=== PATIENT | male | born 1985 | race Caucasian/White ===

== ENCOUNTER 2021-04-03 14:52 | Inpatient (IN) ==
[2021-04-03] MEDS ORDERED: POLYETHYLENE (MIRALAX) 17 GM PACK PO PRN (18:08)
[2021-04-03] MEDS ORDERED: ALUMINUM/MAGNESIUM SUSP 30 ML UDC PO PRN (18:08)
[2021-04-03] MEDS ORDERED: MAGNESIUM HYDROXIDE SUSP 30 ML UDC PO PRN (18:08)
[2021-04-03] MEDS ORDERED: KETOROLAC TROMETHAMINE 15 MG/ML VIAL IV ONE (18:11)
--- NOTE | 2021-04-03 18:19 | History & Physical Report ---
Date of Service April 03, 2021 Assessment & Plan (1) Cavitary lesion of lung: - concern for infectious etiology (bacterial vs fungal vs TB ) vs septic pulmonary emboli in person with IVDU hx and Hep C - CTA Chest for evaluation. AFb smear, gold quantiferon pending. - CBC, CMP, MRSA nares pending. - Vanc, Caspofungin, Zosyn empiric coverage. - airborne precautions - pulm consult - monitor oxygen requirements - PCU for monitoring (2) Bilateral nephrolithiasis: - nonobstructing, 4mm BL - strain urine. ketorolac 10 mg x1. - KUB negative - no hydronephrosis on CT A/P, Bl perinephric stranding - UA unimpressive for infection. - urine and blood cultures pending (3) History of heroin abuse: - cont suboxone 16 mg daily - concern for pulm emboli 2/2 endocarditis, tte in AM (4) Lab test positive for detection of COVID-19 virus: - had covid 1 month ago, pt not tested at that time - asymptomatic - tested positive on 04/03 at [facility] - no O2 requirement - airborne/covid precautions (5) Hepatitis C: - viral quant pending, untreated - consider HIV testing (6) Elevated INR: PT elevated to 16 at [facility] repeat ordered DVT ppx: holding in setting of elevated PT/INR FEN/GI: regular diet, Full Code PCU (7) Constipation: notable stool on KUB, scheduled miralax and docusate Admission and Anticipated Discharge Date Admission Date: April 03, 2021 History of Present Illness 35 yo M with hx untreated hep C, hx IVDU, hx heroin abuse currently on suboxone who presented to [facility] with nausea and vomiting earlier today. States that a few days ago he started feeling pain in his lower back, that was not improving. This morning woke up with nausea, vomited. Denies bilious or bloody vomit. no diarrhea. has some mild stomach pain, mostly back pain. Describes testicular pain that was getting worse and burning pain with urination. He was eventually sent to [facility] as a direct admit described as kidney stones with COVID and concern for pyelonephritis. Review of [facility] records notably shows CT A/P read of 11mm cyst vs abscess of left kidney, and multiple cavitary lesions of lower lung dee. Brief overread by inhouse radiology was more convinced of kidney cyst given small size, but concerned regarding cavitary lesions possibly being septic pulmonary emboli in patient with Hep C and hx IVDU. At bedside patient denied any recent fevers or chills. Nausea and vomiting x1, no diarrhea. No symptoms of Covid. says his had covid 1 month ago, he wasn't tested at the time and has not had breathing problems the entire duration. at this time he feels some discomfort with taking a deep breath but no SOB or CUELLAR. He tested positive for COVID at [facility] today. He also describes testicular pain with urination, and numbness/tingling in testicles. He denies any incontinence of bowel or bladder. He states that approximately 3 weeks ago he bent to pick something heavy up at work and heard a "pop" sound from his back. He visited the chiropractor 3 times to have it adjusted with some improvement. Primary Care Provider: Sierra Zuniga Allergies Allergy/AdvReac Type Severity Reaction Status Date / Time No Known Allergies Allergy Verified 04/03/21 18:47 Past Med/Surg History Medical History (Updated 04/04/21 @ 15:46 by Kofi Buckley MD) No pertinent family history Osteomyelitis of jaw Surgical History (Updated 04/03/21 @ 18:22 by Sadie Win MD) History of mandibular surgery History of placement of ear tubes Hx of tonsillectomy Social History (Updated 04/03/21 @ 18:24 by Sadie Win MD) Smoking Status: Current every day smoker Age Started Using Tobacco: 20; Cigarettes Per Day: 1 pack; Second Hand Exposure: Yes; Do You Dip or Chew Tobacco: No; Hx Alcohol Use: Yes Alcohol type: beer and hard liquor Alcohol Intake Frequency: Monthly or Less Hx Substance Use: Yes Non-Prescribed Medications: Heroin Substance Use Type Other:: hx of heroin use Preferred Language: Luxembourgish Communication Ability: Effective Shank Sorter Required: No Beliefs That Will Affect Care: None Current Living Situation: Family Other Information That Helps Us Care for You: No Feels Safe at Home: Yes Safety Concerns: Feels Safe At This Time Assistive Devices: None Review of Systems Constitutional: no fever, no chills, no sweats and no fatigue Eyes: no blind spots and no discharge Ear, Nose, Mouth, Throat: no hearing loss and no nasal congestion Respiratory: no cough and no dyspnea Cardiovascular: no chest pain, no dyspnea on exertion and no edema Danis tional Comments: + Pain with deep breath Gastrointestinal: + abdominal pain, + nausea and + vomiting; no constipation, no diarrhea/loose stools and no blood in stools Genitourinary: + testicle pain Musculoskeletal: + back pain and + joint pain; no myalgia no CVA tenderness or pain to palpation of spinous processes Neurologic: + tingling and + numbness; no headache(s) Endocrine: no fatigue Physical Exam Physical Exam: Constitutional: thin young male, constantly rearranging position in bed due to discomfort Eyes: EOMI, pupils equal and reactive bilaterally, no scleral icterus Cardiac: RRR, no murmurs, gallops or rubs. Normal S1, S2 Pulm: CTA BL, no wheezes, rhonchi, crackles or rubs, moving air well throughout both lungs Abd: soft, diffuse mild tenderness, nondistended, normal bowel sounds, no rebound or guarding Extremities: 2+ peripheral pulses, no edema Neuro: no focal deficits, moving all 4 limbs, A&Ox3 MSK: plantar flexion, dorsi flexion equal bilaterally, 5/5 flexion, extension at left hip, 3/5 flexion of right hip, 5/5 extension of right hip. negative log roll test bilaterally. Results & Data Results & Data ([facility] [place]) Vital Signs (Past 12 Hours) Vital Signs Temp Pulse Resp BP Pulse Ox 04/03/21 21:30 37.6 C H 82 16 95/56 L 92 04/03/21 18:08 37.0 C 18 117/75 93 Intake and Output 04/03/21 04/03/21 04/03/21 07:59 15:59 23:59 Other: Weight 77.111 kg Weight Measurement Method Last Office Visit Patient Weight 04/03/21 23:59 Weight 77.111 kg Laboratory Results Laboratory Results WBC 21.53 K/uL (4.8-10.8) H 04/03/21 20:37 RBC 4.38 M/uL (4.7-6.1) L 04/03/21 20:37 Hgb 12.8 g/dL (14.0-18.0) L 04/03/21 20:37 Hct 36.4 % (42-52) L 04/03/21 20:37 MCV 83.1 fL (80-100) 04/03/21 20:37 MCH 29.2 pg (25-34) 04/03/21 20:37 MCHC 35.2 g/dL (32-36) 04/03/21 20:37 RDW Std Deviation 38.7 fL (36.4-46.3) 04/03/21 20:37 RDW Coeff of Riley 12.8 % (11.5-14.5) 04/03/21 20:37 Plt Count 138 K/uL (130-400) 04/03/21 20:37 MPV 10.9 fL (7.4-10.4) H 04/03/21 20:37 Immature Gran % (Auto) 0.8 % 04/03/21 20:37 Neut % (Auto) 91.3 % 04/03/21 20:37 Lymph % (Auto) 3.0 % 04/03/21 20:37 Costilla % (Auto) 4.9 % 04/03/21 20:37 Eos % (Auto) 0.0 % 04/03/21 20:37 Baso % (Auto) 0.0 % 04/03/21 20:37 Neut # (Auto) 19.64 K/uL (1.4-6.5) H 04/03/21 20:37 Lymph # (Auto) 0.65 K/uL (1.2-3.4) L 04/03/21 20:37 Costilla # (Auto) 1.05 K/uL (0.11-0.59) H 04/03/21 20:37 Eos # (Auto) 0.00 K/uL (0-0.5) 04/03/21 20:37 Baso # (Auto) 0.01 K/uL (0-0.2) 04/03/21 20:37 Immature Gran # (Auto) 0.18 K/uL (0.00-0.02) H 04/03/21 20:37 PT 12.4 Seconds (9.0-12.0) H 04/03/21 20:37 INR 1.2 (0.9-1.1) H 04/03/21 20:37 Sodium 135 mmol/L (136-145) L 04/03/21 20:37 Potassium 3.9 mmol/L (3.5-5.1) 04/03/21 20:37 Chloride 105 mmol/L (98-107) 04/03/21 20:37 Carbon Dioxide 25 mmol/L (21-32) 04/03/21 20:37 Anion Gap 6.0 (3-11) 04/03/21 20:37 BUN 18 mg/dl (7-18) 04/03/21 20:37 Creatinine 0.99 mg/dl (0.6-1.4) 04/03/21 20:37 Est Cr Clr Drug Dosing 97.4 ml/min 04/03/21 20:37 Est GFR ( Amer) 113.9 ml/min 04/03/21 20:37 Est GFR (Non-Af Amer) 98.3 ml/min 04/03/21 20:37 BUN/Creatinine Ratio 17.9 (10-20) 04/03/21 20:37 Glucose 147 mg/dl (70-99) H 04/03/21 20:37 Calcium 9.1 mg/dl (8.5-10.1) 04/03/21 20:37 Total Bilirubin 1.3 mg/dl (0.2-1) H 04/03/21 20:37 AST 36 U/L (15-37) 04/03/21 20:37 ALT 51 U/L (12-78) 04/03/21 20:37 Alkaline Phosphatase 91 U/L (45-117) 04/03/21 20:37 Total Protein 7.7 gm/dl (6.4-8.2) 04/03/21 20:37 Albumin 3.2 gm/dl (3.4-5.0) L 04/03/21 20:37 Globulin 4.5 gm/dl (2.5-4.0) H 04/03/21 20:37 Albumin/Globulin Ratio 0.7 (0.9-2) L 04/03/21 20:37 Impressions Lumbar Spine X-Ray 04/03/21 18:18 LUMBAR SPINE 5 VIEWS HISTORY: back pop with right leg pain COMPARISON: None. FINDINGS: There is no fracture. No subluxation. Mild disc space narrowing at L5-S1. Mild facet degenerative changes within the lower lumbar spine. L5 is demonstrated to be a transitional vertebra with partial sacralization and pseudoarthrosis of the right transverse process with the sacrum. IMPRESSION: No fracture or subluxation within the lumbar spine. ACT 112: Negative or not required by law. Electronically signed by: Arsh Mckeon M.D. 04/03/2021 9:08 PM KUB X-Ray 04/03/21 19:21 KUB HISTORY: kidney stones COMPARISON: None. FINDINGS: The bowel gas pattern is unremarkable. There are no dilated loops of small bowel to suggest an obstruction. No renal calculi. No ureteral calculi. No pneumoperitoneum or pneumatosis. Moderate well-formed stool seen within the colon. IMPRESSION: No renal or ureteral stones. ACT 112: Negative or not required by law. Electronically signed by: Arsh Mckeon M.D. 04/03/2021 9:09 PM Supervising Physician Co-Signing Physician Notes Reviewed note, discussed with resident. Patient here with cavitary lesion along. Patient is on broad-spectrum antibiotics along with antifungals. Pulmonary is consulting. Patient has no renal issues at this point, bilateral nephrolithiasis nonobstructing and largest stone is in the bladder. Plan to continue antibiotics as noted, monitor renal function. Consider repeat CT if continued symptoms. Resident Activity Tracking Resident Involvement: Resident Care Provided Care Provided: Adult Hospital Medicine (1) Hepatitis C Viral hepatitis chronicity: chronic
[2021-04-03] MEDS ORDERED: KETOROLAC TROMETHAMINE 15 MG/ML VIAL ONE (18:29)
[2021-04-03] MEDS ORDERED: PATIENT'S ALLERGY INFO NEEDS ENTERED STA (18:44)
[2021-04-03] MEDS: SODIUM CHLORIDE 0.9% 1000ML 1,000 ML IV SCH ×2 (18:53→23:53)
[2021-04-03] MEDS ORDERED: cefTRIAXone SODIUM 1,000 MG in DEXTROSE 5% 50 ML IV SCH (20:00)
[2021-04-03] MEDS ORDERED: VANCOMYCIN CONSULT ACTIVE PRN (20:04)
[2021-04-03] MEDS ORDERED: PIPERACILL/TAZOBAC CONSULT ACTIVE PRN (20:34)
[2021-04-03] MEDS ORDERED: VANCOMYCIN HCL 2,000 MG in SODIUM CHLORIDE 0.9% 500 ML IV ONE (20:45)
[2021-04-03] MEDS: BUPRENORPHINE/NALOXONE 8/2 MG TAB SL SCH (20:54)
[2021-04-03 20:59] LABS: Basophils # (auto) 0.01 K/uL (0-0.2); Hematocrit (blood only) 36.4 % (42-52); Hemoglobin 12.8 g/dL (14.0-18.0); Immature Granulocytes # (auto) 0.18 K/uL (0.00-0.02); Immature Granulocytes % (auto) 0.8 %; Lymphocytes # (auto) 0.65 K/uL (1.2-3.4); Mean Corpuscular Hemoglobin 29.2 pg (25-34); Mean Corpuscular Hgb Conc 35.2 g/dL (32-36); Mean Corpuscular Volume 83.1 fL (80-100); Mean Platelet Volume 10.9 fL (7.4-10.4); Monocytes # (auto) 1.05 K/uL (0.11-0.59); Monocytes % (auto) 4.9 %; Neutrophils # (auto) 19.64 K/uL (1.4-6.5); Neutrophils % (auto) 91.3 %; Platelet Count 138 K/uL (130-400); RDW Coefficient of Variation 12.8 % (11.5-14.5); RDW Standard Deviation 38.7 fL (36.4-46.3); Red Blood Count 4.38 M/uL (4.7-6.1); White Blood Count 21.53 K/uL (4.8-10.8)
--- NOTE | 2021-04-03 21:09 | XRay Report ---
LUMBAR SPINE 5 VIEWS HISTORY: back pop with right leg pain COMPARISON: None. FINDINGS: There is no fracture. No subluxation. Mild disc space narrowing at L5-S1. Mild facet degen erative changes within the lower lumbar spine. L5 is demonstrated to be a transitional vertebra with partial sacralization and pseudoarthrosis of the right transverse process with the sacrum. IMPRESSION: No fracture or subluxation within the lumbar spine. ACT 112: Negative or not required by law. Electronically signed by: Arsh Mckeon M.D. 04/03/2021 9:08 PM
[2021-04-03 21:10] LABS: INR 1.2 (0.9-1.1); Prothrombin Time 12.4 Seconds (9.0-12.0)
--- NOTE | 2021-04-03 21:10 | XRay Report ---
KUB HISTORY: kidney stones COMPARISON: None. FINDINGS: The bowel gas pattern is unremarkable. There are no dilated loops of small bowel to suggest an obstruction. No renal calculi. No ureteral calculi. No pneumoperitoneum or pneumatosis. Moderate well-formed stool seen within the colon. IMPRESSION: No renal or ureteral stones. ACT 112: Negative or not required by law. Electronically signed by: Arsh Mckeon M.D. 04/03/2021 9:09 PM
[2021-04-03] MEDS ORDERED: CASPOFUNGIN 70 MG in SODIUM CHLORIDE 0.9% 250 ML IV ONE (21:15)
[2021-04-03] MEDS ORDERED: PIPERACILLIN/TAZOBACTAM 3.375 GM in DEXTROSE 5% 100 ML IV ONE (21:15)
[2021-04-03 21:21] LABS: Albumin Level 3.2 gm/dl (3.4-5.0); BUN Creatinine Ratio 17.9 (10-20); Calcium 9.1 mg/dl (8.5-10.1); Creatinine Clr Calc Pharmacy 97.4 ml/min; Est GFR (African American) 113.9 ml/min; Est GFR (Non-African American) 98.3 ml/min; Potassium 3.9 mmol/L (3.5-5.1)
[2021-04-03 21:24] LABS: Albumin Globulin Ratio 0.7 (0.9-2); Bilirubin,Total 1.3 mg/dl (0.2-1); Globulin 4.5 gm/dl (2.5-4.0); Total Protein 7.7 gm/dl (6.4-8.2)
[2021-04-03] MEDS: POLYETHYLENE (MIRALAX) 17 GM PACK PO SCH (21:26)
--- NOTE | 2021-04-03 21:46 | Pharmacy Report ---
Pharmacy Abx Initial Consult - Date of Service April 03, 2021 - Pharmacy Dosing Scope Date of Consult: 04/03/21 Consultation requested by: Dr. Win Pharmacy is consulted to initiate Vancomycin IV and Zosyn dosing therapy, order appropriate labs and adjust drug dose/frequency. - Subjective The patient is a 35 year old M admitted on 04/03/21 17:15. - Objective Height: 5 ft 7 in Weight: 77.111 kg Vital Signs (Past 12hrs): Vital Signs Temp Pulse Resp BP Pulse Ox 04/03/21 21:30 37.6 C H 82 16 95/56 L 92 04/03/21 18:08 37.0 C 18 117/75 93 Lab Results (24hrs): Laboratory Tests (24 Hours) 04/03/21 04/03/21 20:37 20:37 WBC 21.53 H Neut # (Auto) 19.64 H Creatinine 0.99 Est Cr Clr Drug Dosing 97.4 Micro Results: 04/03/21 20:37 Aerobic Blood Culture - Pending Blood Anaerobic Blood Culture - Pending 04/03/21 20:37 Aerobic Blood Culture - Pending Blood Anaerobic Blood Culture - Pending 04/03/21 Unknown Urine Culture - Pending Urine,Clean Catch - Risk Factors for Resistance * IVDA - Assessment & Plan Assessment 35 year old M on empiric IV Vancomycin, Zosyn, and Caspofungin (not a consult) for pulmonary indication * MRSA nasal swab pending Plan Vancomycin IV Patient meets criteria for vancomycin AUC dosing nomogram AUC/CUONG is the preferred PK/PD target for vancomycin Target AUC/CUONG = 400-600 AUC guided dosing is effective and associated with decreased risk of nephrotoxicity * Loading dose: 2000 mg (~26 mg/kg) * Maintenance dose: 1000 mg IV (~13 mg/kg) every 8 hours * Goal trough level for pneumonia : 15 to 20 mcg/mL * Trough level ordered for 04/05/21 @ 0530 Piperacillin/tazobactam * 3.375 g bolus administered over 30 minutes, then 3.375 g IV extended infusion every 8 hours for CrCl greater than 20 mL/min Pharmacy will continue to follow and will adjust dose/frequency as necessary. Thank you.
[2021-04-03] MEDS ORDERED: SODIUM CHLORIDE 0.9% 1000ML 500 ML IV ONE (22:30)
[2021-04-03] MEDS ORDERED: MoRPHine SULFATE 2 MG/ML CARP IV PRN (22:31)
[2021-04-03] MEDS: ACETAMINOPHEN 325 MG TAB PO PRN (22:52)
[2021-04-03] MEDS ORDERED: OPTIRAY 350 500ml IV ONE (23:59)
[2021-04-04] MEDS: PIPERACILLIN/TAZOBACTAM 3.375 GM in DEXTROSE 5% 100 ML IV SCH ×3 (01:49→18:44)
[2021-04-04] MEDS: VANCOMYCIN HCL 1,000 MG in SODIUM CHLORIDE 0.9% 250 ML IV SCH ×3 (06:04→22:44)
[2021-04-04] MEDS: ONDANSETRON INJ 2 MG/ML 2 ML VIAL IV PRN ×2 (06:14→16:12)
--- NOTE | 2021-04-04 07:44 | Pulmonary Consultation ---
Date of Consultation April 04, 2021 Assessment & Plan (1) Abnormal chest CT: CT chest 04/03/2021 personally reviewed: Multiple pulmonary nodules appreciated bilaterally mostly on the periphery. Left lower lobe consolidative process appreciated with possible cavitation Bilateral dependent atelectasis. Insignificant mediastinal lymphadenopathy Right lower pulmonary subsegmental artery emboli --Multiple pulmonary nodules with left lower lobe cavitary consolidative process Looking at the distribution of the nodules that this looks like septic emboli Patient has history of IV drug abuse Would recommend continuing vancomycin to cover for MRSA as well as Zosyn to cover for Pseudomonas Other nodules of the patient has will also turn into cavitary lesions likely in the near future Possibility of spontaneous pneumothorax is high in such patients given the peripheral location of the cavity. --Acute PE Could be septic emboli Recommend Doppler lower extremity --Active smoker Advised to quit --COVID-19 positive Positive on 04/03/2021 The infiltrates on the CAT scan appreciated I do not think are related to COVID- 19 but rather septic emboli Patient is not hypoxic No need to actively treat COVID-19 Plan: Patient's CAT scan finding represent septic emboli. The possibility of any fungal infection or TB is low I do agree with gold QuantiFERON. Would recommend discontinuing caspofungin. Continue with vancomycin and Zosyn Follow-up sputum culture Recommend Doppler lower extremity as well as 2D echo to rule out vegetations. Patient is complaining of low back pain that is high possibility given sepsis that it could be osteomyelitis of the spine MRI of the lumbar spine to rule out osteo could be thought of Was discussed with Dr. Perea Please note the above document was generated using voice recognition software. It may contain grammatical, syntax or spelling errors.Any formal questions or concerns about the content, text or information contained within the body of this dictation should be directly addressed to the provider for clarification. (2) Multiple pulmonary nodules: (3) Cavitary lesion of lung: (4) Current smoker: (5) Pulmonary embolism: (6) Lab test positive for detection of COVID-19 virus: History of Present Illness Attending Physician: David Perea History of Present Illness 35-year-old male with past medical history of IV drug abuse last use was in 2011 as per the patient, hep C, heroin abuse on Suboxone currently was transferred from [facility] because of lower back pain and for possibility of kidney stones Pulmonary consulted for abnormal chest CT Patient's was recently diagnosed with COVID-19 a month ago. Patient has been having symptoms for approximately 1 week. He denies any issues with shortness of breath. He has complaints of abdominal pain. Nausea and vomiting. No hemoptysis or hematemesis. Denies any cough. No chest pain. Complains of mild dysuria. No hematuria. No headache or blurry vision. She was incarcerated last 2 years ago. He was checked for HIV as well as TB 2 years ago when he was negative Patient is sexually active with only for the last 2 years. Social history: [id number] smoking history active smoker, denies any marijuana use, used to do IV drug abuse last use this with the patient was in 2011. No personal or family history of asthma. Allergies Allergy/AdvReac Type Severity Reaction Status Date / Time No Known Allergies Allergy Verified 04/03/21 18:47 Patient History Medical History (Updated 04/04/21 @ 15:46 by Kofi Buckley MD) No pertinent family history Osteomyelitis of jaw Surgical History (Updated 04/03/21 @ 18:22 by Sadie Win MD) History of mandibular surgery History of placement of ear tubes Hx of tonsillectomy Social History (Updated 04/03/21 @ 18:24 by Sadie Win MD) Smoking Status: Current every day smoker Age Started Using Tobacco: 20; Cigarettes Per Day: 1 pack; Second Hand Exposure: Yes; Do You Dip or Chew Tobacco: No; Hx Alcohol Use: Yes Alcohol type: beer and hard liquor Alcohol Intake Kishore quency: Monthly or Less Hx Substance Use: Yes Non-Prescribed Medications: Heroin Substance Use Type Other:: hx of heroin use Preferred Language: Italian Communication Ability: Effective Va Underwriter Required: No Beliefs That Will Affect Care: None Current Living Situation: Family Other Information That Helps Us Care for You: No Feels Safe at Home: Yes Safety Concerns: Feels Safe At This Time Assistive Devices: None Review of Systems Review of Systems: All systems reviewed & are unremarkable except as noted in HPI & below Physical Exam Physical Exam: Constitutional: No acute distress HEENT: EOMI, PERRLA Respiratory system: Decreased air entry bilaterally, no wheeze, no rhonchi, positive crackles bilaterally CVS: S1-S2 positive, no murmurs or gallops Abdomen: Soft, nondistended, positive left upper as well as right upper quadrant tenderness, no rebound positive bowel sounds x4 Extremities: +2 pulses bilaterally radialis/ dorsalis pedis, no cyanosis, no edema, tattoos all over the body Neuro: Awake alert oriented x3 Psych: Normal mood and affect G/U: No Mercado Skin: no rashes, warm and dry Lymphatic: no cervical or axillary lymphadenopathy Results & Data Results & Data ([facility]) Vital Signs (Past 12 Hours) Vital Signs Temp Pulse Pulse Resp BP Pulse Ox 04/04/21 06:55 37.0 C 58 L 20 119/74 95 04/04/21 04:11 36.7 C 56 L 20 99/67 L 95 04/03/21 23:30 90 04/03/21 22:35 37.2 C 81 18 113/71 95 04/03/21 21:30 37.6 C H 82 16 95/56 L 92 04/04/21 07:50 04/04/21 07:50 PG Care Time/CCT Total # of Minutes Spent Total Time Spent with Patient: Total time spent is greater than 50% in coordination of care (as documented) at patient's floor/unit and/or counseling patient: Coding Level of Care Code 51341 Inpt Consult Level [address] R93.89 Multiple pulmonary nodules R91.8 Cavitary lesion of lung J98.4 Current smoker F17.200 Pulmonary embolism I26.99 Lab test positive for detection of COVID-19 virus U07.1
[2021-04-04] MEDS: BUPRENORPHINE/NALOXONE 8/2 MG TAB SL SCH (08:04)
[2021-04-04] MEDS: DOCUSATE SODIUM/SENNA 50/8.6MG TAB PO SCH (08:05)
[2021-04-04] MEDS: POLYETHYLENE (MIRALAX) 17 GM PACK PO SCH ×2 (08:05→21:47)
[2021-04-04 08:13] LABS: Hematocrit (blood only) 35.1 % (42-52); Hemoglobin 12.4 g/dL (14.0-18.0); Immature Granulocytes # (auto) 0.08 K/uL (0.00-0.02); Immature Granulocytes % (auto) 0.4 %; Lymphocytes # (auto) 0.89 K/uL (1.2-3.4); Lymphocytes % (auto) 4.6 %; Mean Corpuscular Hemoglobin 29.1 pg (25-34); Mean Corpuscular Hgb Conc 35.3 g/dL (32-36); Mean Corpuscular Volume 82.4 fL (80-100); Mean Platelet Volume 10.9 fL (7.4-10.4); Monocytes # (auto) 1.75 K/uL (0.11-0.59); Platelet Count 140 K/uL (130-400); RDW Standard Deviation 39.2 fL (36.4-46.3); Red Blood Count 4.26 M/uL (4.7-6.1); White Blood Count 19.42 K/uL (4.8-10.8)
--- NOTE | 2021-04-04 08:17 | CT Scan Report ---
CT angio chest w con CT DOSE: 564.37 mGycm CLINICAL HISTORY: Possible septic emboli. Possible tuberculosis. Covid positive patient. TECHNIQUE: CT angiography of the thorax was performed in a dynamic helical fashion during intravenous administration of 115 cc of Optiray 350. MIP images were acquired. A dose lowering technique was ut ilized adhering to the principles of ALARA. COMPARISON STUDY: None. FINDINGS: The thyroid is unremarkable in appearance. There is no evidence of thoracic aortic dilatation. There is no evidence of thoracic aortic dissectio n. There is a right lower lobe pulmonary artery filling defect indicative of pulmonary embolism. There are multiple bilateral pulmonary nodules, many of which demonstrate a surrounding groundglass h aleshia. There is a more focal 32 mm pleural-based opacity within the left lower lobe with areas of cavit ation. There is no evidence of pathologic axillary mediastinal or hilar lymphadenopathy. There are no large pleural effusions. There is hepatic steatosis. The spleen is enlarged. No destructive skeletal lesions are visualized. IMPRESSION: 1. Right lower lobe pulmonary artery filling defect indicative of pulmonary embolism. This finding wi ll be called to the floor as it was not described in the pulmonary report 2. 32 mm pleural-based opacity within the left lower lobe with areas of cavitation. This may represen t a pulmonary infarct. 3. Multiple bilateral pulmonary nodules, many of which demonstrate a surrounding groundglass halo. Th is favors an infectious/inflammatory etiology over neoplasm. Septic emboli must be considered within the differential. Clinical and imaging follow-up are recommended. ACT 112: Negative or not required by law. Electronically signed by: Zane Esquivel M.D. 04/04/2021 8:16 AM
--- NOTE | 2021-04-04 08:42 | Hospitalist Progress Note ---
Date of Service April 04, 2021 Assessment & Plan (1) Cavitary lesion of lung: - concern for infectious etiology (bacterial vs fungal vs TB ) vs septic pulmonary emboli in person with IVDU hx and Hep C - CTA Chest appears to be showing pulmonary emboli likely septic given his history. - AFb smear, gold quantiferon pending. - Elevated WBC. -Blood cultures showing MRSA. - Vanc, Caspofungin, Zosyn empiric coverage. - airborne precautions - pulm consult: appreciate input - monitor oxygen requirements - PCU for monitoring This is a complicated patient and there was concern patient may be having a conduction problem with his heart. He was found to have mobitz tuype 2. and this is likely caused vagally. Given how patient has had nausea. Will continue antibiotics for the meantime. 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 (2) Bilateral nephrolithiasis: - nonobstructing, 4mm BL - strain urine. ketorolac 10 mg x1. - KUB negative - no hydronephrosis on CT A/P, Bl perinephric stranding - UA unimpressive for infection. - urine and blood cultures as above (3) History of heroin abuse: - cont suboxone 16 mg daily - concern for pulm emboli 2/2 endocarditis, tte in AM (4) Lab test positive for detection of COVID-19 virus: - had covid 1 month ago, pt not tested at that time - asymptomatic - tested positive on 04/03 at [facility] - no O2 requirement - airborne/covid precautions (5) Hepatitis C: - viral quant pending, untreated - consider HIV testing (6) Elevated INR: PT elevated to 16 at [place] repeat ordered (7) Constipation: DVT ppx: holding in setting of elevated PT/INR FEN/GI: regular diet, Full Code PCU (7) Constipation: notable stool on KUB, scheduled miralax and docusate Admission and Anticipated Discharge Date Admission Date: April 03, 2021 Subjective Patient reports feeling poorly. Patient reports having generalized malaise, nausea, positional dull chest pain thats worse when he sits up and radiates to his back. He prefers to lie down. Patient is not vomiting. Review of Systems Review of Systems: All systems reviewed & are unremarkable except as noted in HPI & below Physical Exam Physical Exam: Constitutional: thin young male appears to be in moderate distress Eyes: EOMI, pupils equal and reactive bilaterally, no scleral icterus Cardiac: RRR, no murmurs, gallops or rubs. Normal S1, S2 Pulm: CTA BL, no wheezes, rhonchi, crackles or rubs, moving air well throughout both lungs Abd: soft, diffuse mild tenderness, nondistended, normal bowel sounds, no rebound or guarding Extremities: 2+ peripheral pulses, no edema Neuro: no focal deficits, moving all 4 limbs, A&Ox3 MSK: plantar flexion, dorsi flexion equal bilaterally, 5/5 flexion, extension at left hip, 3/5 flexion of right hip, 5/5 extension of right hip. negative log roll test bilaterally. Results & Data Results & Data ([facility]) Vital Signs (Past 12 Hours) Vital Signs Temp Pulse Pulse Resp BP Pulse Ox 04/04/21 06:55 37.0 C 58 L 20 119/74 95 04/04/21 04:11 36.7 C 56 L 20 99/67 L 95 04/03/21 23:30 90 04/03/21 22:35 37.2 C 81 18 113/71 95 04/03/21 21:30 37.6 C H 82 16 95/56 L 92 PG Care Time/CCT Total # of Minutes Spent Total Time Spent with Patient: Total time spent is greater than 50% in coordination of care (as documented) at patient's floor/unit and/or counseling patient: Prolonged Care Time Prolonged Care Time: Yes Total Prolonged Care Time: 65 from 7:50 to 8:45 10:45 TO 10:55 Coding Level of Care Code 86928 Subseq Hosp Care Lvl 3 (25 - SIGNIFICANT, SEPARATELY IDENTIFIABLE ) Diagnoses Cavitary lesion of lung J98.4 Bilateral nephrolithiasis N20.0 History of heroin abuse F11.11 Lab test positive for detection of COVID-19 virus U07.1 Hepatitis C B19.20 Viral hepatitis chronicity: chronic Elevated INR R79.1 Constipation K59.00 Additional Codes Prolonged Care Time - Prolonged Care Time: Yes ([id number]) Time Spent (min) 65 (1) Hepatitis C Viral hepatitis chronicity: chronic
[2021-04-04 08:54] LABS: Alanine Aminotransferase 45 U/L (12-78); Albumin Level 2.8 gm/dl (3.4-5.0); Aspartate Aminotransferase 28 U/L (15-37); BUN Creatinine Ratio 25.3 (10-20); Blood Urea Nitrogen 17 mg/dl (7-18); Calcium 8.5 mg/dl (8.5-10.1); Carbon Dioxide 23 mmol/L (21-32); Chloride 107 mmol/L (98-107); Creatinine Clr Calc Pharmacy 141.8 ml/min; Est GFR (African American) 143.4 ml/min; Est GFR (Non-African American) 123.7 ml/min; Glucose 144 mg/dl (70-99); Potassium 3.6 mmol/L (3.5-5.1); Sodium 137 mmol/L (136-145)
[2021-04-04 09:08] LABS: Albumin Globulin Ratio 0.6 (0.9-2); Alkaline Phosphatase 82 U/L (45-117); Bilirubin,Total 0.9 mg/dl (0.2-1); Globulin 4.4 gm/dl (2.5-4.0); Total Protein 7.2 gm/dl (6.4-8.2); Troponin I < 0.015 ng/ml (0-0.045)
[2021-04-04] MEDS ORDERED: Heparin IV Adult Wt-Based Standard *NO* Bolus Protocol ONE (10:51)
--- NOTE | 2021-04-04 11:04 | Cardiology Consultation ---
Date of Consultation April 04, 2021 Assessment & Plan (1) Abnormal ECG: -the patient demonstrates evidence of AV block during episodes of retching and vomiting. -likely secondary to vagal tone. -no need for temporary pacemaking. (2) Multiple pulmonary nodules: -likely septic pulmonary emboli. -has endocarditis and until proven otherwise. (3) History of heroin abuse: -as endocarditis until proven otherwise. -echocardiogram is pending. History of Present Illness Attending Physician: David Perea History of Present Illness Mr. Leone is a 35-year-old male admitted yesterday with multiple pulmonary cavitary lesions and a COVID-19 infection. The patient demonstrated bradycardia and heart block on the monitor this morning, and therefore, this consultation was ordered. The patient was in his usual state of health until approximately 1 week prior to presentation. The patient was experiencing persistent low back pain, but on the day of presentation to [facility], the patient had developed significant nausea and vomiting. A CT scan of the chest and abdomen noted a renal cyst and multiple cavitary pulmonary lesions presumed to be septic pulmonary emboli realizing his history of intravenous drug abuse. While on the monitor today, the patient demonstrated numerous episodes of 2:1 AV block, Mobitz type 1 block, and possible Mobitz type 2 block. His nurse explains that she witnessed these dysrhythmias at the time when the patient was retching and vomiting. His medications reviewed in detail. Past medical and surgical history 1. Nephrolithiasis 2. Hepatitis C 3. Osteomyelitis of the jaw 4. Nephrolithiasis 5. History of intravenous drug abuse Social history and lives with his Smokes 1 pack of cigarettes daily Alcohol use is occasional Intravenous drug abuse with heroin Family history Noncontributory Allergies Allergy/AdvReac Type Severity Reaction Status Date / Time No Known Allergies Allergy Verified 04/03/21 18:47 Patient History Medical History (Updated 04/04/21 @ 11:26 by Gamaliel Rubio MD) No pertinent family history Osteomyelitis of jaw Surgical History (Updated 04/03/21 @ 18:22 by Sadie Win MD) History of mandibular surgery History of placement of ear tubes Hx of tonsillectomy Social History (Updated 04/03/21 @ 18:24 by Sadie Win MD) Smoking Status: Current every day smoker Age Started Using Tobacco: 20; Cigarettes Per Day: 1 pack; Second Hand Exposure: Yes; Do You Dip or Chew Tobacco: No; Hx Alcohol Use: Yes Alcohol type: beer and hard liquor Alcohol Intake Frequency: Monthly or Less Hx Substance Use: Yes Non-Prescribed Medications: Heroin Substance Use Type Other:: hx of heroin use Preferred Language: [place] Communication Ability: Effective Sand Bobber Required: No Beliefs That Will Affect Care: None Current Living Situation: Family Other Information That Helps Us Care for You: No Feels Safe at Home: Yes Safety Concerns: Feels Safe At This Time Assistive Devices: None Physical Exam Physical Exam: Exam per Dr. Perea as the patient is in [place] [id number] isolation. Results & Data ([facility]) Vital Signs (Past 12 Hours) Vital Signs Temp Pulse Pulse Resp BP Pulse Ox 04/04/21 08:00 58 L 04/04/21 06:55 37.0 C 58 L 20 119/74 95 04/04/21 04:11 36.7 C 56 L 20 99/67 L 95 04/03/21 23:30 90 Laboratory Results CBC notes hemoglobin 12.4, hematocrit 35.1, white count 19.4, platelet count [id number]. Electrolytes note a sodium of 137, potassium 3.6, chloride 107, bicarb 23, BUN 17, creatinine 0.68, and glucose of 144. Troponin I levels less than 0.015. Diagnostic Findings EKG notes sinus bradycardia with frequent PACs. Review of the laboratory monitor notes brief episodes of 2-1 av block, Mobitz type 1 av block, and probable Mobitz type 2 av block. PG Care Time/CCT Total # of Minutes Spent Total Time Spent with Patient: Total time spent is greater than 50% in coordination of care (as documented) at patient's floor/unit and/or counseling patient: Coding Level of Care Code 97803 Inpt Consult Level 4 Diagnoses Abnormal ECG R94.31 Multiple pulmonary nodules R91.8 History of heroin abuse F11.11
[2021-04-04] MEDS: HEPARIN SODIUM/DEXTROSE 25,000 UNITS/500 ML BAG IV SCH (12:05)
--- NOTE | 2021-04-04 14:36 | Ultrasound Report ---
US venous doppler LE BI CLINICAL HISTORY: plumonary emboli COMPARISON STUDY: No previous studies for comparison. FINDINGS: Real-time and color flow Doppler imaging were performed. Flow was seen within the femoral, popliteal and calf veins with no intraluminal thrombus demonstrated. The saphenous vein is patent. IMPRESSION: No evidence of deep venous thrombosis. ACT 112: Negative or not required by law. The above report was generated using voice recognition software. It may contain grammatical, syntax o r spelling errors. Electronically signed by: Abbie Lima DO 04/04/2021 2:35 PM
[2021-04-04 15:07] LABS: Partial Thromboplastin Ratio 1.2; Partial Thromboplastin Time 30.8 Seconds (21.0-31.0)
--- NOTE | 2021-04-04 15:33 | Electrocardiogram Report ---
Test Reason : Blood Pressure : / mmHG Vent. Rate : 058 BPM Atrial Rate : 058 BPM P-R Int : 130 ms QRS Dur : 088 ms QT Int : 412 ms P-R-T Axes : 002 037 -09 degrees QTc Int : 404 ms Sinus bradycardia with Premature atrial complexes Poor R wave progression, consider anterior NH vs. lead placement vs. LVH Abnormal ECG No previous ECGs available Confirmed by Gamaliel Rubio ([id number]) on 04/04/2021 3:33:18 PM Referred By: Hosea Moffett Confirmed By:Gamaliel Rubio
--- NOTE | 2021-04-04 16:05 | XCELERA ---
[id number]
[2021-04-04] MEDS ORDERED: PROMETHAZINE HCL 12.5 MG in SODIUM CHLORIDE 0.9% 50 ML IV ONE (18:00)
[2021-04-04 19:47] LABS: Partial Thromboplastin Ratio 1.4; Partial Thromboplastin Time 37.2 Seconds (21.0-31.0)
[2021-04-04] MEDS ORDERED: HEPARIN SOD (PORCINE) 1000 UNIT/ML IV STA (20:00)
[2021-04-04] MEDS ORDERED: CASPOFUNGIN 50 MG in SODIUM CHLORIDE 0.9% 250 ML IV SCH (21:00)
[2021-04-05] MEDS: ONDANSETRON INJ 2 MG/ML 2 ML VIAL IV PRN ×4 (00:03→22:31)
[2021-04-05] MEDS: PIPERACILLIN/TAZOBACTAM 3.375 GM in DEXTROSE 5% 100 ML IV SCH ×3 (02:15→18:19)
[2021-04-05 05:12] LABS: Partial Thromboplastin Ratio 1.1; Partial Thromboplastin Time 29.3 Seconds (21.0-31.0)
[2021-04-05] MEDS ORDERED: VANCOMYCIN TROUGH ONE (05:30)
[2021-04-05] MEDS ORDERED: HEPARIN SOD (PORCINE) 1000 UNIT/ML IV ONE (05:48)
[2021-04-05] MEDS ORDERED: HEPARIN IV BOLUS 6,000 UNITS in SYRINGE 0 ML IV SCH (06:00)
[2021-04-05] MEDS: HEPARIN SODIUM/DEXTROSE 25,000 UNITS/500 ML BAG IV SCH ×4 (06:12→13:41)
[2021-04-05] MEDS: VANCOMYCIN HCL 1,000 MG in SODIUM CHLORIDE 0.9% 250 ML IV SCH (06:12)
[2021-04-05] MEDS: POLYETHYLENE (MIRALAX) 17 GM PACK PO SCH ×2 (08:00→22:25)
[2021-04-05] MEDS: BUPRENORPHINE/NALOXONE 8/2 MG TAB SL SCH (08:00)
[2021-04-05] MEDS: DOCUSATE SODIUM/SENNA 50/8.6MG TAB PO SCH (08:00)
--- NOTE | 2021-04-05 08:50 | Pharmacy Report ---
Pharmacy Abx Dose Short Note - Date of Service April 05, 2021 - Assessment & Plan Assessment 35 year old M receiving Vancomycin + Zosyn + Caspofungin for treatment of MRSA bacteremia/Pulmonary (bacterial vs fungal vs TB ) Pt with IVDU hx and Hep C Day # 3 of antimicrobial therapy. Plan Vancomycin * Trough level of 13.2 mcg/mL is subtherapeutic * Change to 1,250 mg IV every 8 hours * Goal trough level for bacteremia/Pulmonary : 15 to 20 mcg/mL * Trough level ordered for: 04/06/21 @ 1400 Zosyn * Continue 3.375g IV Q8hrs * Sputum cultures gram stain showing gram positive cocci + gram positive bacilli + yeast Caspo * Continue 50mg IV daily Pharmacy will continue to follow and will adjust dose/frequency as necessary. Thank you.
--- NOTE | 2021-04-05 10:14 | Pulmonology Progress Note ---
Date of Service April 05, 2021 Assessment & Plan (1) Abnormal chest CT: CT chest 04/03/2021 personally reviewed: Multiple pulmonary nodules appreciated bilaterally mostly on the periphery. Left lower lobe consolidative process appreciated with possible cavitation Bilateral dependent atelectasis. Insignificant mediastinal lymphadenopathy Right lower pulmonary subsegmental artery emboli --Multiple pulmonary nodules with left lower lobe cavitary consolidative process Looking at the distribution of the nodules that this looks like septic emboli Patient has history of IV drug abuse Gold QuantiFERON negative Would recommend continuing vancomycin to cover for MRSA as well as Zosyn to cover for Pseudomonas Other nodules of the patient has will also turn into cavitary lesions likely in the near future Possibility of spontaneous pneumothorax is high in such patients given the peripheral location of the cavity. Transthoracic 2D echo negative for endocarditis. The risk of endocarditis very high the next step would be AMILCAR --Acute PE Could be septic emboli Doppler lower extremity negative Treat for at least 3 -6 months of anticoagulation --Active smoker Advised to quit --COVID-19 positive Positive on 04/03/2021 The infiltrates on the CAT scan appreciated I do not think are related to COVID- 19 but rather septic emboli Patient is not hypoxic No need to actively treat COVID-19 Plan: Continue with antibiotics for MRSA coverage. Will need antibiotics for at least 6 weeks from last negative blood culture. Possibility of endocarditis high. Transthoracic echo negative. AMILCAR should be the next step Recommend anticoagulation for at least 3-6 months. Although patient's compliance as an outpatient doubtful Patient is positive for 0.3 L since coming to the hospital would be careful with IV fluids. Recommend using diuretics on a as needed basis. Patient likely seems to be withdrawing from opioid. Management as per primary team Continue the current care. Patient is on room air. No further recommendations from pulmonary perspective. Please call directly with any questions. Please note the above document was generated using voice recognition software. It may contain grammatical, syntax or spelling errors.Any formal questions or concerns about the content, text or information contained within the body of this dictation should be directly addressed to the provider for clarification. (2) Multiple pulmonary nodules: (3) Cavitary lesion of lung: (4) Current smoker: (5) Pulmonary embolism: (6) Lab test positive for detection of COVID-19 virus: Admission and Anticipated Discharge Date Admission Date: April 03, 2021 Subjective Patient seen from the glass window of the door. He was sleeping. Not in acute distress. Saturating 95% on room air As per the nurse patient has been complaining of belly pain. And nausea. Review of Systems Review of Systems: All systems reviewed & are unremarkable except as noted in Subjective Physical Exam Physical Exam: Patient not examined due to coronavirus restrictions and attempts to minimize exposure to staff and consider PPE. Please refer to the hospitalist exam for complete details. Results & Data Results & Data ([facility]) Vital Signs (Past 12 Hours) Vital Signs Temp Pulse Pulse Resp BP Pulse Ox 04/05/21 07:51 37.0 C 51 L 19 115/64 93 04/05/21 03:59 36.8 C 49 L 17 112/72 94 04/05/21 00:00 37.0 C 50 L 97 H 129/69 97 04/04/21 22:20 47 L 04/04/21 07:50 04/04/21 07:50 PG Care Time/CCT Total # of Minutes Spent Total Time Spent with Patient: Total time spent is greater than 50% in coordination of care (as documented) at patient's floor/unit and/or counseling patient: Coding Level of Care Code 58943 Subseq Hosp Care Lvl [address] R93.89 Multiple pulmonary nodules R91.8 Cavitary lesion of lung J98.4 Current smoker F17.200 Pulmonary embolism I26.99 Lab test positive for detection of COVID-19 virus U07.1
[2021-04-05 10:55] LABS: Quantiferon Mitogen-NIL 6.65 IU/mL; Quantiferon NIL 0.07 IU/mL; Quantiferon TB Gold Plus NEGATIVE (NEGATIVE); Quantiferon TB2-NIL <0.00 IU/mL
--- NOTE | 2021-04-05 11:56 | Cardiology Progress Note ---
Date of Service April 05, 2021 Assessment & Plan (1) Abnormal ECG: -demonstrated AV block during episodes of retching and vomiting. -this was likely secondary to vagal tone. -no pacing intervention necessary. (2) Multiple pulmonary nodules: -likely septic pulmonary emboli. -transthoracic echocardiogram failed to show vegetation. -would treat as tricuspid valve endocarditis. -no AMILCAR as patient COVID positive. (3) History of heroin abuse: -likely cause of presumed tricuspid valve endocarditis. -may be actively withdrawing from heroin. (4) Lab test positive for detection of COVID-19 virus: -noted. Admission and Anticipated Discharge Date Admission Date: April 03, 2021 Subjective Staff reports nausea, agitation, and diaphoresis. Physical Exam Physical Exam: Exam per Dr. Perea as patient in COVID isolation. 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 PG Care Time/CCT Total # of Minutes Spent Total Time Spent with Patient: Total time spent is greater than 50% in coordination of care (as documented) at patient's floor/unit and/or counseling patient: Coding Level of Care Code 91146 Subseq Hosp Care Lvl 3 Diagnoses Abnormal ECG R94.31 Multiple pulmonary nodules R91.8 History of heroin abuse F11.11 Lab test positive for detection of COVID-19 virus U07.1
[2021-04-05 12:57] LABS: Basophils # (auto) 0.01 K/uL (0-0.2); Basophils % (auto) 0.1 %; Eosinophils # (auto) 0.01 K/uL (0-0.5); Eosinophils % (auto) 0.1 %; Hematocrit (blood only) 33.3 % (42-52); Hemoglobin 11.7 g/dL (14.0-18.0); Immature Granulocytes # (auto) 0.15 K/uL (0.00-0.02); Immature Granulocytes % (auto) 0.8 %; Lymphocytes # (auto) 1.47 K/uL (1.2-3.4); Lymphocytes % (auto) 7.9 %; Mean Corpuscular Hemoglobin 28.5 pg (25-34); Mean Corpuscular Hgb Conc 35.1 g/dL (32-36); Mean Platelet Volume 11.8 fL (7.4-10.4); Monocytes # (auto) 1.54 K/uL (0.11-0.59); Monocytes % (auto) 8.3 %; Neutrophils # (auto) 15.38 K/uL (1.4-6.5); Neutrophils % (auto) 82.8 %; Platelet Count 139 K/uL (130-400); RDW Standard Deviation 38.4 fL (36.4-46.3); Red Blood Count 4.11 M/uL (4.7-6.1); White Blood Count 18.56 K/uL (4.8-10.8)
[2021-04-05 13:11] LABS: Partial Thromboplastin Ratio 1.6; Partial Thromboplastin Time 42.1 Seconds (21.0-31.0)
[2021-04-05 13:14] LABS: BUN Creatinine Ratio 31.1 (10-20); Calcium 8.3 mg/dl (8.5-10.1); Creatinine Clr Calc Pharmacy 137.7 ml/min; Est GFR (African American) 141.7 ml/min; Est GFR (Non-African American) 122.3 ml/min; Potassium 3.9 mmol/L (3.5-5.1)
[2021-04-05] MEDS: VANCOMYCIN HCL 1,250 MG in SODIUM CHLORIDE 0.9% 250 ML IV SCH ×2 (14:02→22:31)
[2021-04-05] MEDS: oxyCODONE/ACETAMINOPHEN 5mg/325mg TAB PO PRN ×2 (14:32→19:42)
[2021-04-05] MEDS: NICOTINE 21 MG/24 HR TDSY TD SCH (18:19)
--- NOTE | 2021-04-05 22:14 | Hospitalist Progress Note ---
Date of Service April 05, 2021 Assessment & Plan (1) Cavitary lesion of lung: - concern for infectious etiology (bacterial vs fungal vs TB ) vs septic pulmonary emboli in person with IVDU hx and Hep C - CTA Chest appears to be showing pulmonary emboli likely septic given his history. - AFb smear, gold quantiferon pending. - Elevated WBC. -Blood cultures showing MRSA. -will stop caspofungin and continue vanc and zosyn - airborne precautions - pulm consult: appreciate input - monitor oxygen requirements - PCU for monitoring This is a complicated patient and there was concern patient may be having a conduction problem with his heart. He was found to have mobitz type 2. and this is likely caused vagally. Given how patient has had nausea. Will continue antibiotics for the meantime. 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 (2) Bilateral nephrolithiasis: - nonobstructing, 4mm BL - strain urine. ketorolac 10 mg x1. - KUB negative - no hydronephrosis on CT A/P, Bl perinephric stranding - UA unimpressive for infection. - urine and blood cultures as above (3) History of heroin abuse: - cont suboxone 16 mg daily - concern for pulm emboli 2/2 endocarditis, Awaiting AMILCAR. (4) Lab test positive for detection of COVID-19 virus: - had covid 1 month ago, pt not tested at that time - asymptomatic - tested positive on 04/03 at [facility] - no O2 requirement - airborne/covid precautions (5) Hepatitis C: - viral quant pending, untreated - consider HIV testing (6) Elevated INR: PT elevated to 16 at [place] repeat ordered (7) Constipation: DVT ppx: holding in setting of elevated PT/INR FEN/GI: regular diet, Full Code PCU (7) Constipation: notable stool on KUB, scheduled miralax and docusate Admission and Anticipated Discharge Date Admission Date: April 03, 2021 Subjective 35 yo male is resting comfortably. Review of Systems Review of Systems: All systems reviewed & are unremarkable except as noted in HPI & below Physical Exam Physical Exam: Constitutional: thin young male appears to be in no distress Eyes: EOMI, pupils equal and reactive bilaterally, no scleral icterus Cardiac: RRR, no murmurs, gallops or rubs. Normal S1, S2 Pulm: CTA BL, no wheezes, rhonchi, crackles or rubs, moving air well throughout both lungs Abd: soft, diffuse mild tenderness, nondistended, normal bowel sounds, no rebo und or guarding Extremities: 2+ peripheral pulses, no edema Results & Data Results & Data ([facility]) Vital Signs (Past 12 Hours) Vital Signs Temp Pulse Pulse Resp BP Pulse Ox 04/05/21 19:30 37.1 C 58 L 20 121/74 97 04/05/21 15:53 37.1 C 51 L 18 118/64 95 04/05/21 15:00 48 L 04/05/21 11:38 36.9 C 46 L 18 116/70 95 PG Care Time/CCT Total # of Minutes Spent Total Time Spent with Patient: Total time spent is greater than 50% in coordination of care (as documented) at patient's floor/unit and/or counseling patient: Coding Level of Care Code 74472 Subseq Hosp Care Lvl 2 Diagnoses Cavitary lesion of lung J98.4 Bilateral nephrolithiasis N20.0 History of heroin abuse F11.11 Lab test positive for detection of COVID-19 virus U07.1 Hepatitis C B19.20 Viral hepatitis chronicity: chronic Elevated INR R79.1 Constipation K59.00 Time Spent (min) 25 (1) Hepatitis C Viral hepatitis chronicity: chronic
[2021-04-05 22:47] LABS: Partial Thromboplastin Ratio 1.2; Partial Thromboplastin Time 31.7 Seconds (21.0-31.0)
[2021-04-05] MEDS ORDERED: HEPARIN IV BOLUS 3,000 UNITS in SYRINGE 0 ML IV ONE (23:30)
[2021-04-06] MEDS: HEPARIN SODIUM/DEXTROSE 25,000 UNITS/500 ML BAG IV SCH ×5 (00:10→15:07)
[2021-04-06] MEDS: oxyCODONE/ACETAMINOPHEN 5mg/325mg TAB PO PRN ×4 (01:48→19:57)
[2021-04-06] MEDS: PIPERACILLIN/TAZOBACTAM 3.375 GM in DEXTROSE 5% 100 ML IV SCH ×3 (01:49→17:16)
[2021-04-06] MEDS: VANCOMYCIN HCL 1,250 MG in SODIUM CHLORIDE 0.9% 250 ML IV SCH ×2 (06:49→14:15)
[2021-04-06 07:02] LABS: Partial Thromboplastin Ratio 1.3
[2021-04-06] MEDS ORDERED: HEPARIN SOD (PORCINE) 1000 UNIT/ML IV ONE ×2 (07:19→14:46)
[2021-04-06 07:32] LABS: Creatinine Clr Calc Pharmacy 112.1 ml/min; Est GFR (African American) 130.2 ml/min; Est GFR (Non-African American) 112.3 ml/min
[2021-04-06] MEDS ORDERED: HEPARIN IV BOLUS 3,000 UNITS in SYRINGE 0 ML IV ONE ×2 (07:45→15:00)
[2021-04-06] MEDS: POLYETHYLENE (MIRALAX) 17 GM PACK PO SCH ×2 (07:50→19:59)
[2021-04-06] MEDS: DOCUSATE SODIUM/SENNA 50/8.6MG TAB PO SCH (07:50)
[2021-04-06] MEDS: NICOTINE 21 MG/24 HR TDSY TD SCH (07:53)
[2021-04-06] MEDS: BUPRENORPHINE/NALOXONE 8/2 MG TAB SL SCH (09:02)
[2021-04-06] MEDS: ONDANSETRON INJ 2 MG/ML 2 ML VIAL IV PRN ×2 (09:03→15:20)
[2021-04-06] MEDS ORDERED: VANCOMYCIN TROUGH ONE (13:30)
[2021-04-06 14:28] LABS: Partial Thromboplastin Ratio 1.3; Partial Thromboplastin Time 34.2 Seconds (21.0-31.0)
[2021-04-06 15:16] LABS: Hepatitis C Vira RNA (Log) PCR 4.44 Log IU/mL (NOT DETECTED)
--- NOTE | 2021-04-06 16:14 | Pharmacy Report ---
Pharmacy Abx Dose Short Note - Date of Service April 06, 2021 - Assessment & Plan Assessment 35 year old M receiving Vancomycin + Zosyn for treatment of MRSA bacteremia/Pulmonary (bacterial vs fungal vs TB ) Pt with IVDU hx and Hep C Day # 4 of antimicrobial therapy. Laboratory Tests 04/06/21 14:05 Vancomycin Trough 10.6 Plan Vancomycin * Trough level of 10.6 mcg/mL is subtherapeutic * Change to 1,500 mg IV every 8 hours * Goal trough level for bacteremia/Pulmonary : 15 to 20 mcg/mL * Trough level ordered for: 04/07/21 @ 2130 Zosyn * Continue 3.375g IV Q8hrs * Sputum cultures gram stain showing gram positive cocci + gram positive bacilli + yeast Pharmacy will continue to follow and will adjust dose/frequency as necessary. Thank you.
[2021-04-06] MEDS: ACETAMINOPHEN 325 MG TAB PO PRN (19:57)
[2021-04-06 21:53] LABS: Partial Thromboplastin Ratio 1.6; Partial Thromboplastin Time 41.6 Seconds (21.0-31.0)
[2021-04-06] MEDS: MoRPHine SULFATE 2 MG/ML CARP IV PRN (22:06)
[2021-04-06] MEDS: VANCOMYCIN HCL 1,500 MG in SODIUM CHLORIDE 0.9% 500 ML IV SCH (22:07)
--- NOTE | 2021-04-06 22:19 | Hospitalist Progress Note ---
Date of Service April 06, 2021 Assessment & Plan (1) MRSA bacteremia: Patient has MRSA bacteremia. Unsure of source. Given his back pain, may have discitis? TTE was negative but will await repeat blood cultures. If remains posotive, patient will require AMILCAR, however this is postponed due to COVID diagnosis. However, patient likely is no longer contagiuous as his was diagnosed about 1 month ago. Patient likely had COVID during that time as well. will continu vacn and zosyn for pseudomonas coverage will order MR of lumbar spine with contrast (2) Cavitary lesion of lung: - concern for infectious etiology (bacterial vs fungal vs TB ) vs septic pulmonary emboli in person with IVDU hx and Hep C - CTA Chest appears to be showing pulmonary emboli likely septic given his history. - AFb smear, gold quantiferon pending. - Elevated WBC. -Blood cultures showing MRSA. -will stop caspofungin and continue vanc and zosyn - airborne precautions - pulm consult: appreciate input - monitor oxygen requirements - PCU for monitoring Will continue antibiotics for the meantime. (3) Bilateral nephrolithiasis: - nonobstructing, 4mm BL - strain urine. ketorolac 10 mg x1. - KUB negative - no hydronephrosis on CT A/P, Bl perinephric stranding - UA unimpressive for infection. - urine and blood cultures as above (4) History of heroin abuse: - cont suboxone 16 mg daily - concern for pulm emboli 2/2 endocarditis, Awaiting AMILCAR. (5) Lab test positive for detection of COVID-19 virus: - had covid 1 month ago, pt not tested at that time - asymptomatic - tested positive on 04/03 at [facility] - no O2 requirement - airborne/covid precautions (6) Hepatitis C: - viral quant pending, untreated - consider HIV testing (7) Elevated INR: PT elevated to 16 at [place] repeat ordered (8) Constipation: DVT ppx: holding in setting of elevated PT/INR FEN/GI: regular diet, Full Code PCU (7) Constipation: notable stool on KUB, scheduled miralax and docusate Admission and Anticipated Discharge Date Admission Date: April 03, 2021 Subjective 35 yo male reports having lower back pain. The pain is severe and patient is requiring more pain medicine. Review of Systems Review of Systems: All systems reviewed & are unremarkable except as noted in HPI & below Physical Exam Physical Exam: Constitutional: thin young male appears to be in no distress Eyes: EOMI, pupils equal and reactive bilaterally, no scleral icterus Cardiac: RRR, no murmurs, gallops or rubs. Normal S1, S2 Pulm: CTA BL, no wheezes, rhonchi, crackles or rubs, moving air well throughout both lungs Abd: soft, diffuse mild tenderness, nondistended, normal bowel sounds, no rebound or guarding Extremities: 2+ peripheral pulses, no edema Results & Data Results & Data ([facility]) Vital Signs (Past 12 Hours) Vital Signs Temp Pulse Pulse Resp BP Pulse Ox 04/06/21 19:25 38.2 C H 87 19 112/70 94 04/06/21 15:00 37.2 C 82 19 110/68 97 04/06/21 14:49 87 04/06/21 11:49 37.0 C 71 20 109/65 95 PG Care Time/CCT Total # of Minutes Spent Total Time Spent with Patient: Total time spent is greater than 50% in coordination of care (as documented) at patient's floor/unit and/or counseling patient: Coding Level of Care Code 45226 Subseq Hosp Care Lvl 3 Diagnoses MRSA bacteremia R78.81; B95.62 Cavitary lesion of lung J98.4 Bilateral nephrolithiasis N20.0 History of heroin abuse F11.11 Lab test positive for detection of COVID-19 virus U07.1 Hepatitis C B19.20 Viral hepatitis chronicity: chronic Elevated INR R79.1 Constipation K59.00 (1) Hepatitis C Viral hepatitis chronicity: chronic
[2021-04-07] MEDS ORDERED: DOCUSATE SODIUM/SENNA 50/8.6MG TAB PO PRN (00:53)
[2021-04-07] MEDS: MoRPHine SULFATE 2 MG/ML CARP IV PRN ×3 (01:30→07:48)
[2021-04-07] MEDS: PIPERACILLIN/TAZOBACTAM 3.375 GM in DEXTROSE 5% 100 ML IV SCH ×3 (01:34→18:27)
[2021-04-07] MEDS: HEPARIN SODIUM/DEXTROSE 25,000 UNITS/500 ML BAG IV SCH ×3 (01:40→22:58)
[2021-04-07 05:10] LABS: Creatinine Clr Calc Pharmacy 155.5 ml/min; Est GFR (Non-African American) 128.5 ml/min
[2021-04-07 05:11] LABS: Partial Thromboplastin Ratio 1.9
[2021-04-07 05:14] LABS: Partial Thromboplastin Time 50.1 Seconds (21.0-31.0)
[2021-04-07] MEDS: VANCOMYCIN HCL 1,500 MG in SODIUM CHLORIDE 0.9% 500 ML IV SCH ×2 (06:07→15:38)
[2021-04-07] MEDS: ONDANSETRON INJ 2 MG/ML 2 ML VIAL IV PRN (07:48)
[2021-04-07] MEDS: NICOTINE 21 MG/24 HR TDSY TD SCH (07:49)
[2021-04-07] MEDS: POLYETHYLENE (MIRALAX) 17 GM PACK PO SCH ×2 (07:49→22:45)
[2021-04-07] MEDS: BUPRENORPHINE/NALOXONE 8/2 MG TAB SL SCH (07:49)
[2021-04-07] MEDS ORDERED: NALOXONE HCL 0.4 MG/1 ML VIAL/CARP IV PRN (08:26)
[2021-04-07] MEDS ORDERED: MoRPHine SULFATE PCA 30 MG/30 ML IV PRN (08:26)
[2021-04-07] MEDS ORDERED: SODIUM CHLORIDE 0.9% 1000ML 1,000 ML IV SCH (08:30)
--- NOTE | 2021-04-07 10:19 | Electrocardiogram Report ---
Test Reason : Blood Pressure : / mmHG Vent. Rate : 054 BPM Atrial Rate : 054 BPM P-R Int : 136 ms QRS Dur : 090 ms QT Int : 420 ms P-R-T Axes : 038 066 016 degrees QTc Int : 398 ms Sinus bradycardia Otherwise normal ECG When compared with ECG of 04-APR-2021 06:40, Premature atrial complexes are no longer Present Nonspecific T wave abnormality no longer evident in Anterolateral leads Confirmed by Israel Hampton ([id number]) on 04/07/2021 10:19:20 AM Referred By: Hosea Moffett Confirmed By:Israel Hampton
[2021-04-07 10:28] LABS: Potassium 3.3 mmol/L (3.5-5.1)
[2021-04-07] MEDS ORDERED: VANCOMYCIN TROUGH ONE ×2 (13:30→21:30)
[2021-04-07] MEDS ORDERED: DAPTOmycin 400 MG in SYRINGE 0 ML IV SCH (15:00)
[2021-04-07] MEDS ORDERED: LACTATED RINGER'S 1,000 ML IV ONE (17:03)
[2021-04-07 19:11] LABS: Hematocrit (blood only) 17.4 % (42-52); Hemoglobin 6.3 g/dL (14.0-18.0); Mean Corpuscular Hemoglobin 28.9 pg (25-34); Mean Corpuscular Hgb Conc 36.2 g/dL (32-36); Mean Corpuscular Volume 79.8 fL (80-100); Mean Platelet Volume 10.4 fL (7.4-10.4); Nucleated RBC # (auto) 0.08 K/uL (0-0); Nucleated RBC % (auto) 0.3 %; Platelet Count 214 K/uL (130-400); RDW Coefficient of Variation 12.6 % (11.5-14.5); RDW Standard Deviation 37.1 fL (36.4-46.3); Red Blood Count 2.18 M/uL (4.7-6.1); White Blood Count 25.18 K/uL (4.8-10.8)
[2021-04-07 19:24] LABS: BUN Creatinine Ratio 23.5 (10-20); Calcium 7.5 mg/dl (8.5-10.1); Creatinine Clr Calc Pharmacy 110.8 ml/min; Est GFR (African American) 129.6 ml/min; Est GFR (Non-African American) 111.8 ml/min; Potassium 3.2 mmol/L (3.5-5.1)
[2021-04-07 19:27] LABS: ALC (manual) 3.95 K/uL (1.2-3.4); ANC (manual) 19.04 K/uL (1.4-6.5); Anisocytosis Present; Lymphocytes # (manual) 3.95 K/uL (1.2-3.4); Lymphocytes % (manual) 15.7 %; Metamyelocytes # (manual) 0.88 K/uL (0-0); Metamyelocytes % (manual) 3.5 %; Monocytes # (manual) 0.65 K/uL (0.11-0.59); Monocytes % (manual) 2.6 %; Myelocytes # (manual) 0.65 K/uL (0-0); Myelocytes % (manual) 2.6 %; Neutrophils # (manual) 19.04 K/uL (1.4-6.5); Neutrophils % (manual) 75.6 %; Polychromasia 1+
[2021-04-07] MEDS ORDERED: SODIUM CHLORIDE 0.9% 250 ML IV PRN ×2 (19:27→22:32)
--- NOTE | 2021-04-07 21:51 | Hospitalist Progress Note ---
Date of Service April 07, 2021 Assessment & Plan (1) MRSA bacteremia: Patient has MRSA bacteremia. Unsure of source, perhaps back. Given his back pain, may have discitis? TTE was negative Repat blood cultures were positive. Will repeat blood cultures today however, patient was refusing repeat blood work as he was getting frustrated with his lack of improvement. Had extensive discussion with patient and he was agreeable to blood work. As repeat blood culture is positive, will need repeat AMILCAR. However this is postponed due to COVID diagnosis. Patient likely is no longer contagiuous as his was diagnosed about 1 month ago. Patient likely had COVID during that time. will continue vacn and zosyn for pseudomonas coverage will order MR of lumbar spine with contrast 17:21 Update: given continued tachycardia, and BP in low 100s. will transfer patient to ICU. D/W multisensor intelligence officer. Given MRSA bacteremia, and septic emboli. Initially had changed abx to dapto today due to inability to obtain vanc level as patient was refusing. However, due to septic emboli, this was switched to linezolid ordered on 04/08 (2) Cavitary lesion of lung: - concern for infectious etiology (bacterial vs fungal vs TB ) vs septic pulmonary emboli in person with IVDU hx and Hep C - CTA Chest appears to be showing pulmonary emboli likely septic given his history. - AFb smear, gold quantiferon pending. - Elevated WBC. -Blood cultures showing MRSA. -will stop caspofungin and continue vanc and zosyn - airborne precautions - pulm consult: appreciate input - monitor oxygen requirements - PCU for monitoring Will continue antibiotics for the meantime. (3) Bilateral nephrolithiasis: - nonobstructing, 4mm BL - strain urine. ketorolac 10 mg x1. - KUB negative - no hydronephrosis on CT A/P, Bl perinephric stranding - UA unimpressive for infection. - urine and blood cultures as above (4) History of heroin abuse: - cont suboxone 16 mg daily - concern for pulm emboli 2/2 endocarditis, Awaiting AMILCAR. (5) Lab test positive for detection of COVID-19 virus: - had covid 1 month ago, pt not tested at that time - asymptomatic - tested positive on 04/03 at [facility] - no O2 requirement - airborne/covid precautions (6) Hepatitis C: - viral quant pending, untreated - consider HIV testing (7) Elevated INR: PT elevated to 16 at [facility] (8) Constipation: DVT ppx: holding in setting of elevated PT/INR FEN/GI: regular diet, Full Code PCU (7) Constipation: notable stool on KUB, scheduled miralax and docusate Admission and Anticipated Discharge Date Admission Date: April 03, 2021 Subjective Patient reports having significant back pain. Patient reported that he felt weak and had severe pain in his back and he was unable to tolerate having a back MRI. Patient stated that he refused blood work eventhough it was stated that this would help guide us to adeqautely manage his problem, Had multiple visit with patient today. In afternoon, was able to convince patient to get blood work as his HR had increased. Explained concern over HR becoming higher. and concern over possible worsening sepsis Patient states he has not had any illicit drugs for years. But that he had pain in his lower back for for past 2 weeks. And since then he has been getting wirse, and worse. Review of Systems Review of Systems: All systems reviewed & are unremarkable except as noted in HPI & below Physical Exam Physical Exam: Constitutional: thin young male appears to be in no distress Eyes: EOMI, pupils equal and reactive bilaterally, no scleral icterus Cardiac: tachycardic, no murmurs, gallops or rubs. Normal S1, S2 Pulm: CTA BL, no wheezes, rhonchi, crackles or rubs, moving air well throughout both lungs Abd: soft, diffuse mild tenderness, nondistended, normal bowel sounds, no rebound or guarding Extremities: 2+ peripheral pulses, no edema Results & Data Results & Data ([facility]) Vital Signs (Past 12 Hours) Vital Signs Temp Pulse Pulse Resp BP Pulse Ox 04/07/21 19:46 37.6 C H 110 H 20 104/64 95 04/07/21 15:37 101 H 04/07/21 14:43 104 H 22 122/77 95 04/07/21 13:45 110 H 22 129/77 96 04/07/21 12:00 102 H 24 122/77 97 04/07/21 10:00 96 H 20 107/62 96 PG Care Time/CCT Total # of Minutes Spent Total Time Spent with Patient: Total time spent is greater than 50% in coordination of care (as documented) at patient's floor/unit and/or counseling patient: Prolonged Care Time Prolonged Care Time: Yes Total Prolonged Care Time: 70 9:00 to 9:35 14:20 to 14:40 17:15 to 17:30 Coding Level of Care Code 57796 Subseq Hosp Care Lvl 3 (25 - SIGNIFICANT, SEPARATELY IDENTIFIABLE ) Diagnoses MRSA bacteremia R78.81; B95.62 Cavitary lesion of lung J98.4 Bilateral nephrolithiasis N20.0 History of heroin abuse F11.11 Lab test positive for detection of COVID-19 virus U07.1 Hepatitis C B19.20 Viral hepatitis chronicity: chronic Elevated INR R79.1 Constipation K59.00 Additional Codes Prolonged Care Time - Prolonged Care Time: Yes ([id number]) Time Spent (min) 70 (1) Hepatitis C Viral hepatitis chronicity: chronic
--- NOTE | 2021-04-07 22:15 | Critical Care Consultation ---
Date of Consultation April 07, 2021 Assessment & Plan (1) Admitted to intensive care unit: Reason Critically Ill: 35-year-old male with MRSA bacteremia from no defined source at this point. Patient with pulmonary emboli on heparin drip with acute drop in H&H requiring transfusion. Further evaluation into possible underlying source for bacteremia required. NEURO - * CAM ICU: NEGATIVE * Pain: * Patient with prior history of heroin abuse. Previously started on Suboxone. 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 Uncertain why both of these drugs were continued in combination. * Will discontinue both morphine SUPPLY CHAIN ENGINEER and Suboxone. * Will provide as needed narcotics based on patient's symptomatology. CARDIAC/VASCULAR - * Possible endocarditis: * Patient with remote history of IV drug abuse presenting with MRSA bacteremia. * Underwent TTE which was nondiagnostic for valvulopathy. * Patient likely warrants AMILCAR pending further evaluation for possible source. * Monitor on telemetry. RESPIRATORY - * Pulmonary emboli: * CT findings of RIGHT lower lobe PE. * Currently on heparin drip. * Not requiring supplemental oxygen at this time. * There is been no elevation of his troponin or right heart strain noted on echocardiogram. * Patient needs further evaluation for possible sources. * Cavitary lesions: * Per pulmonary, suggestive of septic emboli. * Continue with ongoing antibiotic therapies. GI/NUTRITION - * Tolerating p.o. currently. RENAL/LYTES - * Hypokalemia: * Replace appropriately. - * Strict I&Os. ENDO - * No history of diabetes or thyroid disease. * BSGs per unit protocol. ISS --> gtt per unit policy. HEME - * Acute anemia with concerns for hemolysis. * Haptoglobin order placed. * Consult for peripheral blood smear ordered. * Acute drop in H&H with hemoglobin of 6. * Consent obtained by my attending for transfusion of 2 units. * Requiring heparin drip: * Heparin drip was initially stopped with drop in H&H. Unfortunately, CT of the abdomen pelvis with IV contrast is concerning for IVC clot. Given this finding and risks for not remaining anticoagulated, the heparin drip was restarted. Will trend H&H. Transfuse as needed. ID - * MRSA bacteremia: * Unfortunately, to this point, no definitive sources have been identified. * Do agree with initial TTE for evaluation of endocarditis in the patient with prior history of drug abuse. He reports last IV drug use in 2011. Pending ongoing diagnostic evaluation, patient may warrant AMILCAR. Regardless, continue with antibiotics to cover for possible endocarditis. * Patient with complaints of ongoing low back pain. On assessment, the patient is with leg flexed at the hip. He has pain with range of motion. Thankfully, he is without incontinence or other concerning exam findings otherwise. Regardless, with the patient's history of remote intravenous drug abuse, ongoing fever, bacteremia, epidural abscess/discitis/etc. need to be evaluated thoroughly. Patient apparently refused MRI today secondary to discomfort. Had a lengthy discussion with the patient regarding utility of MRI and need for complete assessment of lumbar spine with concerns for possible abscess and risk for worsening neurological complications up to and including , disfigurement, or sexual dysfunction. He is in agreement to attempt MRI with appropriate analgesia. * Cavitary lung lesion likely secondary to septic emboli. Continue with ongoing antibiotic therapies. * Repeat blood cultures pending. * Repeat lactate and a.m. procalcitonin. LINES/IV ACCESS - * PIVs x2 * RIGHT IJ CVL DVT PROPHYLAXIS - * Heparin drip * SCDs I have personally spent 45 minutes of critical care time in the direct management of this patient. This is a life/limb threatening event. This includes time spent evaluating patient, direct bedside care, chart review, placing orders, interpretation of diagnostic studies, discussion with consultants, patient, and family members, as well as other required patient management activities. This time is exclusive of all separately billable procedures, and teaching time and separate from and in addition to any other critical care service time. Thank you for allowing us to participate in the care of this patient. Please refer to my attending physician's documentation for any further recommendations. (2) MRSA bacteremia: (3) Pulmonary embolism: (4) Cavitary lesion of lung: (5) Lab test positive for detection of COVID-19 virus: (6) Back pain: (7) Hip pain: (8) History of intravenous drug abuse: (9) Anemia: Supervising Physician Co-Signing Physician Notes I have personally evaluated and examined this patient. I agree with assessment and plan of Geronimo Riggs PA-C. Patient having significant pain precluding MRI, will use ketamine for pain medication. He has had a drop in his H&H will obtain abdomen pelvis to rule out a retroperitoneal hematoma and also image the spine at this time we will do our best to obtain MRI images to evaluate for discitis which I think is prudent. Continue IV antibiotics patient is critically ill. I have personally spent 35 minutes of critical care time in the direct management of this patient. This is a life/limb threatening event. This includes time spent evaluating patient, direct bedside care, chart review, placing orders, interpretation of diagnostic studies, discussion with consultants, patient, and/or family members regarding treatment decisions, as well as other required patient management activities. This time is exclusive of all separately billable procedures, and teaching time and separate from and in addition to any other critical care service time. History of Present Illness Attending Physician: David Perea History of Present Illness Patient is a 35-year-old male with a significant past medical history of intravenous heroin abuse and hepatitis C. He reports he last used IV heroin in 2011. He reports that he has only utilized heroin and no other illicit drugs in the past. Patient presented to [facility] on 04/03 for complaints of back pain and urinary issues. He was found to have pulmonary emboli with concerns for cavitary lesion as well as possible pyelonephritis and COVID-19. He was subsequently transferred to our institution for further evaluation management. Patient has been aggressively managed with intravenous antibiotics including vancomycin and Zosyn. Per review of records, the patient has had CTA which demonstrated RIGHT lower lobe pulmonary emboli as well as concerns for cavitated lesion. Patient has been consistently febrile. TTE was unable to assess for vegetative lesion, however this is not study of choice and AMILCAR is currently being deferred secondary to current COVID-19 diagnosis. Patient is bacteremic with gram-positive cocci in clusters. Previously covered with vancomycin and now transition to linezolid. Repeat blood cultures were obtained today. Patient has had ongoing complaints of back pain throughout this hospitalization. He was initially started on Suboxone. Patient was subsequently provided morphine SUPPLY CHAIN ENGINEER. There was concern that patient has been lethargic and with need for supplemental oxygen. Additionally, repeat labs demonstrate substantial drop in H&H. With all of these factors, the patient was transferred to the ICU for ongoing evaluation and management. Upon evaluation in the ICU, the patient is awake, alert, and oriented. He is in no acute distress. Patient is laying with his RIGHT leg flexed at the hip. He reports ongoing pain in his low back with radiation down his leg and into his RIGHT groin. He denies any difficulty with urination. Specifically, he denies any loss of control bowel/bladder. He denies any saddle anesthesia. He reports no abdominal pain. Thankfully, he denies any complaints of headaches, dizziness, lightheadedness, chest pain, palpitations, pleuritic pain, shortness of breath, or abdominal discomfort. He does report nausea. Allergies Allergy/AdvReac Type Severity Reaction Status Date / Time No Known Allergies Allergy Verified 04/03/21 18:47 Patient History Medical History No pertinent family history Osteomyelitis of jaw Surgical History History of mandibular surgery History of placement of ear tubes Hx of tonsillectomy Social History Smoking Status: Current every day smoker Age Started Using Tobacco: 20; Cigarettes Per Day: 1 pack; Second Hand Exposure: Yes; Do You Dip or Chew Tobacco: No; Hx Alcohol Use: Yes Alcohol type: beer and hard liquor Alcohol Intake Frequency: Monthly or Less Hx Substance Use: Yes Non-Prescribed Medications: Heroin Substance Use Type Other:: hx of heroin use Preferred Language: Hebrew Communication Ability: Effective Slitter Operator Required: No Beliefs That Will Affect Care: None Current Living Situation: Family Other Information That Helps Us Care for You: No Feels Safe at Home: Yes Safety Concerns: Feels Safe At This Time Assistive Devices: Walker Review of Systems Review of Systems: A complete 10 point review of systems was reviewed with the patient with pertinent positives and negatives as per history of present illness. All else were negative. Physical Exam Physical Exam: VITAL SIGNS - Vital signs and nursing notes were reviewed. GENERAL - 35-year-old male appearing his stated age who is in no acute distress. Communicates well with provider and answers questions appropriately. SKIN - Without rashes. Pale appearing. HEAD - NC/AT. EYES - PERRL with EOMI bilaterally. Sclera anicteric. Palpebral conjunctiva pink and moist with no injection noted. EARS - No deformities of external structures noted on gross examination bilaterally. NOSE - Midline and without cyanosis. No epistaxis or purulent drainage noted. MOUTH/OROPHARYNX - Without perioral cyanosis. Buccal mucosa pink and moist and without leukoplakia. NECK - Neck with FROM. Supple to palpation. No lymphadenopathy noted. No nuchal rigidity. LUNGS - Chest wall symmetric without accessory muscle use, intercostals retractions, or central cyanosis. Normal vesicular breath sounds CTA B/L. No wheezes, rales, or rhonchi appreciated. CARDIAC - RRR with S1/S2. No murmur, rubs, or gallops appreciated. ABDOMEN - Abdominal contour flat without pulsations or visible masses. BS normoactive all four quadrants. No tenderness, palpable masses, hepatosplenomegaly, or ascites noted. EXTREMITIES - No clubbing or peripheral cyanosis. No pretibial edema present. +3/5 radial and dorsalis pedis pulses palpated throughout. +5/5 strength appreciated bilaterally lower extremities. Patient lays with his RIGHT leg flexed at the hip. Pain to range of motion noted. NEUROLOGIC - Cranial nerves II through XII grossly intact. Sensory intact to light touch throughout. Patellar reflexes +2/4 on the left and +1/4 on the RIGHT. PSYCH - A&Ox3 and cooperates fully with examiner. Pt is very pleasant and interacts well with examiner. Results & Data Results & Data ([facility]) Vital Signs (Past 12 Hours) Vital Signs Temp Pulse Pulse Resp BP Pulse Ox 04/07/21 19:46 37.6 C H 110 H 20 104/64 95 04/07/21 15:37 101 H 04/07/21 14:43 104 H 22 122/77 95 04/07/21 13:45 110 H 22 129/77 96 04/07/21 12:00 102 H 24 122/77 97 Coding Level of Care Code Critical Care 1st 30-74 mins Diagnoses Admitted to intensive care unit Z78.9 MRSA bacteremia R78.81; B95.62 Pulmonary embolism I26.99 Cavitary lesion of lung J98.4 Lab test positive for detection of COVID-19 virus U07.1 Back pain M54.9 Hip pain M25.559 History of intravenous drug abuse F19.11 Anemia D64.9 Time Spent (min) 45
--- NOTE | 2021-04-07 22:20 | Procedure Note ---
Procedure Note Date of Service April 07, 2021 Procedure date: Noted above Procedure: Central venous access Pre-procedure indication: Poor vascular access, need for vasoactive medication administration Post-procedure Diagnosis: same as above Prior to Procedure: Informed Consent: The risks, benefits, indications, potential complications, and alternatives were explained to the patient and informed consent obtained. Attending Staff: Junior Chang DO Resident/APC: Geronimo Riggs Skin Prep: Chlorhexidine Anesthesia: 4 mL 1% lidocaine without epinephrine The identity of the patient was confirmed and a bedside time out was performed. Description of Procedure: After sterile prep and sterile drape utilizing standard sterile technique the superficial skin of the right subclavian area was anesthetized. The target vessel was identified and entered with an 18-gauge needle. Dark venous blood return was noted. A guidewire was inserted through the needle and into the vessel. The needle was withdrawn and a skin jesus was made. A tissue dilator was advanced via Seldinger technique and removed. A triple lumen catheter was inserted via Seldinger technique and the guidewire removed. All ports aparna and flushed easily. A Biopatch was placed, and the catheter was secured via silk suture. A sterile dressing was then applied. Complications: None Estimated blood loss: Trace Patient tolerated the procedure well. Coding CPT Codes Tubes, Drains, and Vasc Access - Tubes, Drains, and Vasc Access: [id number] Insertion Of Non-tunneled Catheter Age 5 Yrs> ([id number]) [facility] [place] Procedure Codes (Charges) Tubes, Drains, and Vasc Access Procedure 1: Tubes, Drains, and Vasc Access: [id number] Insertion Of Non-tunneled Catheter Age 5 Yrs>
[2021-04-07] MEDS: LINEZOLID 600 MG/300 ML BAG IV SCH (22:44)
[2021-04-07] MEDS ORDERED: OPTIRAY 320 100ml IV ONE (22:47)
--- NOTE | 2021-04-07 22:53 | XRay Report ---
SINGLE VIEW CHEST CLINICAL HISTORY: Central venous catheter placement. FINDINGS: An AP, portable, supine chest radiograph is correlated with chest CT dated 04/03/2021. A rig ht subclavian central venous catheter is in place. The cardiomediastinal silhouette is unremarkable. There is moderate interstitial thickening and nodularity. No lobar consolidation or large pleural eff usion is identified. No pneumothorax is seen. The bony thorax is grossly intact. IMPRESSION: 1. A right subclavian central venous catheter has been placed. No pneumothorax is identified. 2. Interstitial thickening and mild nodularity seen throughout both lungs. 3. There is no lobar consolidation or pleural effusion. ACT 112: Negative or not required by law. Electronically signed by: Eddie Dwyer M.D. 04/07/2021 10:51 PM
[2021-04-07 22:56] LABS: Reticulocyte % 3.7 % (0.5-2.0); Reticulocytes # 0.06 10^6/uL (0.02-0.10)
--- NOTE | 2021-04-07 23:17 | CT Scan Report ---
CT SCAN OF THE CHEST, ABDOMEN, AND PELVIS WITH IV CONTRAST; CT SCAN OF THE LUMBAR SPINE WITH IV CONTR AST CLINICAL HISTORY: Covid. Drop in hemoglobin. Low back pain. COMPARISON STUDY: Chest CT dated 04/03/2021. KUB dated 04/03/2021. Abdominal CT dated 04/03/2021. Radio graphs of the lumbar spine dated 04/03/2021. TECHNIQUE: Following the IV administration of 89 of Optiray 320, CT scan of the chest, abdomen, and p ivan was performed from the thoracic inlet to the proximal femora. Additionally, CT scan of lumbar s pine is performed from the lower thoracic spine to the sacrum. Images for these examinations are revi ewed in the axial, sagittal, and coronal planes. IV contrast was administered without complication. A dose lowering technique was utilized adhering to the principles of ALARA. Examinations are modestly degraded by motion artifact. CT DOSE: 637.80 mGy.cm FINDINGS: CHEST: Thyroid: Imaged portions of the thyroid gland are normal in size and attenuation. Thoracic aorta: The thoracic aorta is normal in caliber and demonstrates standard 3-vessel arch anato my. No dissection is seen. Pulmonary vasculature: The pulmonary trunk is normal in caliber. Pulmonary embolus is again seen with in segmental branches of the right lower lobe pulmonary artery. The central pulmonary vessels are sivakumar ar. Note that this examination was not protocoled for evaluation of the pulmonary arteries. Heart: A right subclavian central venous catheter is in place. The heart is normal in size and withou t pericardial effusion. Lungs and pleural spaces: There are trace pleural effusions. A focus of subpleural consolidation with cavitation is again seen at the left lung base on image #161. This measures up to 3.2 cm. There are numerous (greater than 20) inflammatory appearing nodules with groundglass halos scattered throughout both lungs, many of which demonstrate cavitation. The distribution of nodules is similar to previous . The degree of cavitation has increased as compared to 04/03/2021. The trachea and central airways ar e clear. Mediastinum: There is no mediastinal lymphadenopathy. Estela: Clear. Axillae: There is no axillary lymphadenopathy. Bony thorax: No lytic or blastic lesions are identified. ABDOMEN AND PELVIS: Liver: The contrast-enhanced liver is normal in size, contour, and attenuation. There is no intrahepa tic biliary ductal dilatation. The hepatic veins and portal veins are patent. Gallbladder: Unremarkable. Spleen: Normal in size and attenuation. Pancreas: Unremarkable. Adrenal glands: The adrenal glands appear hyperemic. Kidneys: The contrast enhanced kidneys are normal in size and without hydronephrosis. There is hetero geneous enhancement of both kidneys. Small nonobstructing calculi measure up to 4 mm. A subcentimeter cortical hypodensity in the left kidney likely represents a cyst but is too small for definitive racheal racterization. There is bilateral perinephric stranding. Abdominal vasculature: The abdominal aorta is normal in course and caliber. Thrombus is noted within the inferior vena cava on image #146. Bowel: There is no bowel obstruction. The appendix is well-visualized and normal. Peritoneum/retroperitoneal: There is no intraperitoneal free air or abdominal ascites. There is a fat -containing umbilical hernia. No retroperitoneal hemorrhage is identified. Lymphadenopathy: None. Pelvic viscera: The bladder, prostate, and seminal vesicles are normal as visualized. Skeletal structures: See below for dedicated assessment of the lumbar spine. No lytic or blastic lesi ons are seen. There is a joint effusion of the right hip. LUMBAR SPINE: Vertebral body height and alignment are maintained throughout the lumbar spine. The tra nsverse and spinous processes are intact. There is a hemitransitional right lumbosacral segment. Ther e is no evidence of spondylolysis. There is mild disc space narrowing at L5-S1. The remaining disc sp aces are maintained. There is no evidence of large disc herniation or high-grade stenosis by CT. Ther e is no endplate erosion or destruction. The paraspinous soft tissues are within normal limits. IMPRESSION: 1. Pulmonary embolus is again seen within a segmental branch of the right lower lobe pulmonary artery . 2. There is focal subpleural consolidation again seen at the left lung base with numerous (greater th an 20) inflammatory appearing pulmonary nodules scattered throughout both lungs. The distribution of nodules is similar to the 04/03/2021 examination. The degree of cavitation has significantly increased . An infectious etiology is favored such as septic emboli. Clinical correlation will be required and follow-up to resolution is recommended. 3. Trace pleural effusions. 4. Renal enhancement is heterogeneous with associated perinephric inflammation. This could be related to bilateral pyelonephritis or possibly acute renal injury. Correlate with serum creatinine levels a nd urinalysis. 5. There is nonocclusive thrombus present within the inferior vena cava. 6. No acute bony abnormality is seen involving the lumbar spine. 7. There is a right hip joint effusion. The sterility cannot be evaluated by CT. 8. Bilateral nephrolithiasis. 9. The adrenal glands appear hyperemic, which can be seen with hypovolemia/hypotension. Clinical kayden elation will be required. 10. Additional findings as above. ACT 112: Negative or not required by law. Electronically signed by: Eddie Dwyer M.D. 04/07/2021 11:15 PM
[2021-04-07] MEDS: ACETAMINOPHEN 325 MG TAB PO PRN (23:37)
[2021-04-08] MEDS: POTASSIUM CHLORIDE / WTR 20 MEQ/100 ML PLCT IV SCH ×2 (00:14→06:26)
[2021-04-08 00:30] LABS: INR 1.3 (0.9-1.1); Partial Thromboplastin Ratio 1.2; Prothrombin Time 13.1 Seconds (9.0-12.0)
[2021-04-08] MEDS ORDERED: HYDROmorphone INJ 0.5 MG/0.5 ML SYR IV STA ×4 (00:32→04:50)
[2021-04-08 00:35] LABS: Appearance Urine Clear (Clear); Bilirubin Urine Negative (Negative); Blood Urine Negative (Negative); Color Urine Yellow; Glucose Urine UA Negative (Negative); Ketones Urine Negative (Negative); Leukocyte Esterase Urine Negative (Negative); Nitrite Urine Negative (Negative); Protein Urine Negative (Negative); Specific Gravity Urine 1.042 (1.000-1.030); Urobilinogen Urine Negative (Negative); pH Urine 5.5 (4.5-7.5)
[2021-04-08] MEDS ORDERED: HYDROmorphone INJ 0.5 MG/0.5 ML SYR ONE ×2 (00:37→04:57)
[2021-04-08] MEDS: HEPARIN SODIUM/DEXTROSE 25,000 UNITS/500 ML BAG IV SCH ×2 (00:39→09:33)
[2021-04-08 03:24] LABS: Albumin Level 2.1 gm/dl (3.4-5.0); Bilirubin Direct 0.2 mg/dl (0-0.2); Calcium 7.1 mg/dl (8.5-10.1); Creatinine Clr Calc Pharmacy 96.4 ml/min; Est GFR (African American) 112.5 ml/min; Est GFR (Non-African American) 97.1 ml/min; Potassium 3.3 mmol/L (3.5-5.1)
[2021-04-08 03:26] LABS: Bilirubin,Total 0.6 mg/dl (0.2-1); Phosphorus 3.5 mg/dl (2.5-4.9); Total Protein 5.5 gm/dl (6.4-8.2)
[2021-04-08 03:43] LABS: ALC (manual) 5.01 K/uL (1.2-3.4); ANC (manual) 19.54 K/uL (1.4-6.5); Eosinophils # (manual) 0.52 K/uL (0-0.5); Eosinophils % (manual) 1.7 %; Hematocrit (blood only) 20.1 % (42-52); Hemoglobin 7.1 g/dL (14.0-18.0); Lymphocytes # (manual) 5.01 K/uL (1.2-3.4); Lymphocytes % (manual) 16.5 %; Mean Corpuscular Hemoglobin 28.7 pg (25-34); Mean Corpuscular Hgb Conc 35.3 g/dL (32-36); Mean Corpuscular Volume 81.4 fL (80-100); Mean Platelet Volume 10.6 fL (7.4-10.4); Metamyelocytes # (manual) 1.85 K/uL (0-0); Metamyelocytes % (manual) 6.1 %; Monocytes # (manual) 2.37 K/uL (0.11-0.59); Monocytes % (manual) 7.8 %; Myelocytes # (manual) 1.06 K/uL (0-0); Myelocytes % (manual) 3.5 %; Neutrophils # (manual) 19.54 K/uL (1.4-6.5); Neutrophils % (manual) 64.4 %; Nucleated RBC % (auto) 0.3 %; Platelet Count 227 K/uL (130-400); Polychromasia 1+; RDW Coefficient of Variation 13.6 % (11.5-14.5); RDW Standard Deviation 39.6 fL (36.4-46.3); Red Blood Count 2.47 M/uL (4.7-6.1); Reticulocyte % 4.2 % (0.5-2.0); White Blood Count 30.34 K/uL (4.8-10.8)
[2021-04-08 04:34] LABS: Fibrinogen 456 mg/dl (184-400); INR 1.4 (0.9-1.1); Prothrombin Time 13.4 Seconds (9.0-12.0)
[2021-04-08] MEDS: PIPERACILLIN/TAZOBACTAM 3.375 GM in DEXTROSE 5% 100 ML IV SCH ×2 (04:38→10:40)
[2021-04-08 04:41] LABS: D Dimer 2920 ug/L FEU (0-500)
[2021-04-08] MEDS ORDERED: GADOBUTROL 10ML VIAL IV ONE (05:09)
[2021-04-08] MEDS: LINEZOLID 600 MG/300 ML BAG IV SCH (05:37)
[2021-04-08 07:12] LABS: Hematocrit (blood only) 19.8 % (42-52); Hemoglobin 6.9 g/dL (14.0-18.0)
[2021-04-08] MEDS ORDERED: SODIUM CHLORIDE 0.9% 250 ML IV PRN (07:15)
[2021-04-08 07:43] LABS: Creatinine Clr Calc Pharmacy 102.5 ml/min; Est GFR (African American) 121.3 ml/min; Est GFR (Non-African American) 104.6 ml/min
--- NOTE | 2021-04-08 07:57 | Magnetic Resonance Report ---
MR hip RT wo/w con CLINICAL HISTORY: Sepsis. Right hip joint effusion. History of IV drug abuse. Evaluate for osteomyeli tis/septic arthritis. COMPARISON STUDY: CT scan dated 04/07/2021 FINDINGS: The study was limited from a technical standpoint. The patient was unable to lie flat. Images were ac quired before and after the administration of 7.8 cc of intravenous Gadavist. Multiple repeat sequenc es were acquired. The patient was scanned in the left lateral decubitus position. There are no areas of marrow or replacement to indicate neoplasm. There are no areas of marrow edema to indicate occult fracture or bone bruise. There are no findings to indicate osteomyelitis within the right hip. There is nonspecific L2 vertebral body marrow edema. There is a trace left hip joint effusion, and small right hip joint effusion. There is no pathologic adenopathy. There is mild edema within the right adductor musculature. There are no fluid collections to indicate an abscess. There is fluid within the rectum. IMPRESSION: 1. Small right hip joint effusion, and trace left hip joint effusion 2. No evidence of osteomyelitis within the right hip. 3. Mild right adductor muscular edema. 4. No evidence of abscess 5. Nonspecific L2 marrow edema. ACT 112: Negative or not required by law. Electronically signed by: Zane Esquivel M.D. 04/08/2021 7:56 AM
--- NOTE | 2021-04-08 08:04 | Magnetic Resonance Report ---
MR lumbar spine wo/w con CLINICAL HISTORY: back pain/ infection TECHNIQUE: Sagittal and axial T1, T2 and STIR images were obtained. Images were acquired before and a fter the administration of 7.8 cc of intravenous Gadavist The study is moderately compromised from technical standpoint. The patient was unable to lie flat for the entire study. Several sequences are motion compromised. COMPARISON STUDY: No previous studies for comparison. OBSERVATIONS: There is L2 marrow edema. There is postcontrast L2 enhancement. This finding could be neoplastic or i nfectious. Clinical and imaging follow-up are recommended. L1-2: No disc protrusions or extrusions. No evidence of spinal canal or neural foraminal compromise. L2-3: There is a mild circumferential disc bulge. There is minimal spinal canal narrowing. There is n o significant foraminal stenosis L3-4: No disc protrusions or extrusions. No evidence of spinal canal or neural foraminal compromise. L4-5: There is a small right paracentral disc protrusion. There is minimal deformity of the thecal sa c. There is no significant foraminal narrowing. L5-S1: No disc protrusions or extrusions. No evidence of spinal canal or neural foraminal compromise. The conus medullaris and cauda equina appear normal. Postcontrast images reveal mild bilateral psoas enhancement. There are no focal fluid collections to indicate an abscess. There is heterogeneous right renal enhancement. Clinical correlation with regard s to pyelonephritis recommended. IMPRESSION: 1. L2 marrow edema. This could be on a neoplastic or infectious basis. Clinical and imaging follow-up are recommended. 2. Mild bilateral psoas enhancement, likely inflammatory. No fluid collections to indicate a focal ab scess 3. Heterogeneous renal enhancement. Clinical correlation with regards to pyelonephritis recommended 4. Right paracentral disc protrusion at the L4-5 level. 5. Technically limited study ACT 112: Negative or not required by law. Electronically signed by: Zane Esquivel M.D. 04/08/2021 8:03 AM
[2021-04-08] MEDS ORDERED: POTASSIUM CHLORIDE / WTR 20 MEQ/100 ML PLCT IV SCH (08:30)
[2021-04-08] MEDS: POLYETHYLENE (MIRALAX) 17 GM PACK PO SCH (08:46)
[2021-04-08] MEDS ORDERED: PANTOprazole 40 MG in SYRINGE 0 ML IV SCH (09:00)
--- NOTE | 2021-04-08 09:02 | Critical Care Progress Note ---
Date of Service April 08, 2021 Assessment & Plan (1) Admitted to intensive care unit: Reason Critically Ill: 35-year-old male with MRSA bacteremia from no defined source at this point. Patient with pulmonary emboli on heparin drip with acute drop in H&H requiring transfusion. Further evaluation into possible underlying source for bacteremia required. NEURO - * CAM ICU: NEGATIVE * Pain: We will treat with as needed Dilaudid. CARDIAC/VASCULAR - * Possible endocarditis: * Patient with remote history of IV drug abuse presenting with MRSA bacteremia. * Underwent TTE which was nondiagnostic for valvulopathy. * Patient likely warrants AMILCAR pending further evaluation for possible source. * Monitor on telemetry. RESPIRATORY - * Pulmonary emboli: * CT findings of RIGHT lower lobe PE. * Holding heparin drip at this time due to concerns of GI bleeding. * Not requiring supplemental oxygen at this time. * There has been no elevation of his troponin or right heart strain noted on echocardiogram. * Patient needs further evaluation for possible sources. * Cavitary lesions: Likely septic emboli. * GI/NUTRITION - * N.p.o. at this time given concern for GI bleeding. GI consult in place. Continue Protonix drip. LFTs within normal limits. RENAL/LYTES - CT abdomen findings concerning for bilateral pyelonephritis. * Hypokalemia: * Replace appropriately. - * Strict I&Os. ENDO - * No history of diabetes or thyroid disease. * BSGs per unit protocol. ISS --> gtt per unit policy. HEME - * Concern for lower GI bleed. CT abdomen pelvis unrevealing for GIB source. Hemolysis work-up pending. Fibrinogen level acceptable. Does not seem like DIC at this time. FDP elevated likely related to acute clot. Unfortunately heparin must be held at this time given the patient's acute blood loss anemia secondary to GI bleed. Vascular surgery was consulted for an IVC filter. Continue to trend hemoglobin every 6 hours. ID - * MRSA bacteremia: * MRI of the lumbar spine concerning for L2 marrow edema which may be related to osteomyelitis. Unfortunately, it appears that orthospine is not candelaria ilable today. * Right hip MRI concerning for a small right hip effusion and a trace left hip effusion. Unclear whether this represents infectious etiology. * Initial blood cultures from 04/03/2021 demonstrated MRSA. Follow-up blood cultures on 04/06/2021 demonstrating persistent staph species. * Infectious disease consult placed. * AMILCAR will need to be completed most likely. * Continue linezolid and Zosyn for the time being. * Possible pyelonephritis noted on the CT abdomen. Urinalysis is negative. Patient on Zosyn as noted above. * Urine cultures pending. * LINES/IV ACCESS - * PIVs x2 * RIGHT IJ CVL DVT PROPHYLAXIS - * Heparin drip on hold due to the lower GI bleed. * SCDs Dispo: I discussed with the hospitalist regarding transfer of this patient for high-level care. She is going to look into potential transfer. I appreciate the hospitalist's assistance. I have personally spent 31 minutes of critical care time in the direct management of this patient. This is a life/limb threatening event. This includes time spent evaluating patient, direct bedside care, chart review, placing orders, interpretation of diagnostic studies, discussion with consultants, patient, and family members, as well as other required patient management activities. This time is exclusive of all separately billable procedures, and teaching time and separate from and in addition to any other critical care service time. Thank you for allowing us to participate in the care of this patient. Please refer to my attending physician's documentation for any further recommendations. (2) MRSA bacteremia: (3) Pulmonary embolism: (4) Cavitary lesion of lung: (5) Lab test positive for detection of COVID-19 virus: (6) Back pain: (7) Hip pain: (8) History of intravenous drug abuse: (9) Anemia: Admission and Anticipated Discharge Date Admission Date: April 03, 2021 Subjective Patient seen and examined this morning. Hemodynamically stable. Complaining of lower back pain and hip pain. He rates his pain an 8 out of 10. He apparently had several episodes of hematochezia. Receiving 1 unit of blood. Review of Systems Review of Systems: All systems reviewed & are unremarkable except as noted in HPI & below Physical Exam Physical Exam: VITAL SIGNS - Vital signs and nursing notes were reviewed. GENERAL - 35-year-old male appearing his stated age who is in no acute distress. Communicates well with provider and answers questions appropriately. SKIN - Without rashes. Pale appearing. HEAD - NC/AT. EYES - PERRL with EOMI bilaterally. Sclera anicteric. Palpebral conjunctiva pink and moist with no injection noted. EARS - No deformities of external structures noted on gross examination bilaterally. NOSE - Midline and without cyanosis. No epistaxis or purulent drainage noted. MOUTH/OROPHARYNX - Without perioral cyanosis. Buccal mucosa pink and moist and without leukoplakia. NECK - Neck with FROM. Supple to palpation. No lymphadenopathy noted. No nuchal rigidity. LUNGS - Chest wall symmetric without accessory muscle use, intercostals retractions, or central cyanosis. Normal vesicular breath sounds CTA B/L. No wheezes, rales, or rhonchi appreciated. CARDIAC - RRR with S1/S2. No murmur, rubs, or gallops appreciated. ABDOMEN - Abdominal contour flat without pulsations or visible masses. BS normoactive all four quadrants. No tenderness, palpable masses, hepatosplenomegaly, or ascites noted. EXTREMITIES - No clubbing or peripheral cyanosis. No pretibial edema present. +3/5 radial and dorsalis pedis pulses palpated throughout. +5/5 strength appreciated bilaterally lower extremities. Patient lays with his RIGHT leg flexed at the hip. Pain to range of motion noted. NEUROLOGIC - Cranial nerves II through XII grossly intact. Sensory intact to light touch throughout. Patellar reflexes +2/4 on the left and +1/4 on the RIGHT. PSYCH - A&Ox3 and cooperates fully with examiner. Pt is very pleasant and interacts well with examiner. Results & Data Results & Data ([facility]) Vital Signs (Past 12 Hours) Vital Signs Temp Pulse Pulse Resp BP BP Pulse Ox 04/08/21 07:57 98.6 F 94 H 24 108/60 93 04/08/21 06:00 100 H 22 106/57 L 91 04/08/21 05:26 98.6 F 98 H 21 123/72 95 04/08/21 04:45 99.7 F H 107 H 23 112/65 94 04/08/21 04:25 131/51 L 99 04/08/21 04:15 120/69 95 04/08/21 04:00 104/55 L 93 04/08/21 03:45 111/65 95 04/08/21 03:30 116/73 93 04/08/21 03:26 114 H 104/53 L 93 04/08/21 03:25 107 H 114/66 93 04/08/21 03:20 114/66 93 04/08/21 03:15 104/57 L 93 04/08/21 03:10 104/57 L 93 04/08/21 03:08 105 H 101/59 L 92 04/08/21 03:05 104/64 92 04/08/21 03:00 57/38 L 90 04/08/21 02:55 131/61 92 04/08/21 02:50 131/61 04/08/21 02:45 127/52 L 04/08/21 02:40 127/52 L 04/08/21 02:35 127/52 L 04/08/21 02:30 114/51 L 04/08/21 02:25 114/51 L 96 04/08/21 02:24 97 H 114/51 L 96 04/08/21 02:20 123/51 L 94 04/08/21 02:15 123/51 L 93 04/08/21 02:11 101 H 123/51 L 92 04/08/21 02:10 149/41 H 96 04/08/21 02:05 149/41 H 95 04/08/21 02:03 95 H 149/41 H 96 04/08/21 02:00 127/47 L 95 04/08/21 01:51 99 H 127/47 L 97 04/08/21 01:46 96/51 L 04/08/21 01:38 102 H 115/36 L 90 04/08/21 01:32 108 H 114/56 L 91 04/08/21 01:30 107 H 131/55 L 93 04/08/21 01:19 112 H 116/69 89 L 04/08/21 01:17 103 H 127/48 L 90 04/08/21 00:37 99.3 F 114 H 20 98/64 L 98 04/08/21 00:07 100.6 F H 111 H 20 97/54 L 94 04/07/21 23:52 100.4 F H 117 H 20 107/55 L 97 04/07/21 23:29 100.4 F H 113 H 21 106/52 L 94 04/07/21 23:00 109 H 21 94 04/07/21 22:49 112 H 22 106/47 L 94 04/07/21 22:19 114 H 95/53 L 92 04/07/21 22:13 117 H 97/58 L 93 04/07/21 22:12 119 H 97/63 L 94 04/07/21 22:11 120 H 100/55 L 94 04/07/21 22:10 107 H 92/47 L 95 04/07/21 22:09 118 H 94/51 L 04/07/21 22:03 99.3 F 118 H 100/59 L 96 Vital signs, labs and imaging reviewed. Coding Level of Care Code Critical Care 1st 30-74 mins Diagnoses Admitted to intensive care unit Z78.9 MRSA bacteremia R78.81; B95.62 Pulmonary embolism I26.99 Cavitary lesion of lung J98.4 Lab test positive for detection of COVID-19 virus U07.1 Back pain M54.9 Hip pain M25.559 History of intravenous drug abuse F19.11 Anemia D64.9 Time Spent (min) 31
[2021-04-08] MEDS ORDERED: PANTOprazole 40 MG in DEXTROSE 5% 100 ML IV SCH (09:15)
[2021-04-08] MEDS: NICOTINE 21 MG/24 HR TDSY TD SCH (09:59)
[2021-04-08] MEDS: HYDROmorphone INJ 0.5 MG/0.5 ML SYR IV PRN ×2 (10:01→11:27)
[2021-04-08] MEDS ORDERED: VANCOMYCIN CONSULT ACTIVE PRN (10:27)
[2021-04-08] MEDS ORDERED: VANCOMYCIN HCL 2,000 MG in SODIUM CHLORIDE 0.9% 500 ML IV ONE (10:30)
--- NOTE | 2021-04-08 10:42 | Pharmacy Report ---
Pharmacy Abx Dose Short Note - Date of Service April 08, 2021 - Assessment & Plan Assessment Patient with MRSA bacteremia from unclear source. Repeat blood cultures with staph species. Had previously been on vancomycin, however refusing lab draws, therefore changed to daptomycin. Daptomycin dc'ed last evening as concern for pulmonary source, changed to zyvox. Discussed with provider this morning and due to concern now for endocarditis favor vancomycin as first line therapy over zyvox. Zyvox has limited data for this indication. Patient now with central line so lab draws will not be an issue. Plan Vancomycin * Reloaded patient with vancomycin 2000 mg x 1 (~25 mg/kg/dose) - had been >24 hrs since last vancomycin dose given. * Will restart 1500 mg iv q 8 hr (previous dosing patient had been on). This dose had been increased due to lower trough level on 1250 mg iv q 8 hr dosing * Plan to monitor closely to ensure trough ~15-20 mcg/ml. Plan to collect trough level before the 1000 dose on 04/09 * Per discussion with provider, patient may be transferred Pharmacy will continue to follow and will adjust dose/frequency as necessary. Thank you.
--- NOTE | 2021-04-08 11:10 | Discharge Summary ---
Date of Service April 08, 2021 Admission HPI Per Admitting Provider 35 yo M with hx untreated hep C, hx IVDU, hx heroin abuse currently on suboxone who presented to [facility] with nausea and vomiting earlier today. States that a few days ago he started feeling pain in his lower back, that was not improving. This morning woke up with nausea, vomited. Denies bilious or bloody vomit. no diarrhea. has some mild stomach pain, mostly back pain. Describes testicular pain that was getting worse and burning pain with urination. He was eventually sent to [facility] as a direct admit described as kidney stones with COVID and concern for pyelonephritis. Review of [place] records notably shows CT A/P read of 11mm cyst vs abscess of left kidney, and multiple cavitary lesions of lower lung dee. Brief overread by inhouse radiology was more convinced of kidney cyst given small size, but con cerned regarding cavitary lesions possibly being septic pulmonary emboli in patient with Hep C and hx IVDU. At bedside patient denied any recent fevers or chills. Nausea and vomiting x1, no diarrhea. No symptoms of Covid. says his had covid 1 month ago, he wasn't tested at the time and has not had breathing problems the entire duration. at this time he feels some discomfort with taking a deep breath but no SOB or CUELLAR. He tested positive for COVID at [facility] today. He also describes testicular pain with urination, and numbness/tingling in testicles. He denies any incontinence of bowel or bladder. He states that approximately 3 weeks ago he bent to pick something heavy up at work and heard a "pop" sound from his back. He visited the chiropractor 3 times to have it adjusted with some improvement. Principal Diagnosis MRSA Bacteremia, Suspected infective endocarditis, IVC thrombus and PE, Acute GI Bleed, Acute blood loss anemia Suspected L2 osteomyelitis, Suspected Right hip septic arthritis COVID-19 Discharge Exam Constitutional WD/WN, vitals as above + ill appearing; not lethargic Eyes + anicteric sclerae ENMT Ears: no hearing impairment and no external ear abnormality Neck trachea midline, no thyromegaly Respiratory normal respiratory effort, lungs clear to auscultation Cardiovascular RRR, no murmur, no edema Chest (Breasts) Chest: normal inspection of chest Gastrointestinal (Abdomen) normal bowel sounds, soft, nontender, no hepatosplenomegaly Musculoskeletal Extremities: extremities normal to inspection; no cyanosis and no clubbing Skin no rashes, warm and dry Neurologic moves all extremities and awake; no focal motor deficits Psychiatric A+Ox3, euthymic affect Lymphatic no lymphedema Discharge Data Allergies Allergy/AdvReac Type Severity Reaction Status Date / Time No Known Allergies Allergy Verified 04/03/21 18:47 Consultations 04/03/21 20:27 Consult Pulmonology Routine 04/04/21 08:41 Consult Cardiology Routine 04/05/21 10:35 Consult Infectious Diseases Routine 04/05/21 11:18 Consult Anesthesiology Routine 04/07/21 17:24 Consult Client Sales And Service Officer Routine 04/08/21 03:29 Consult Gastroenterology Routine Consult Vascular Surgery Routine 04/08/21 08:50 Consult Orthopedic Surgery Routine 04/08/21 11:04 Burn CD for patient Stat Ordered Studies 04/03/21 22:57 CT angio chest w con Urgent 04/04/21 10:47 US venous doppler LE BI Routine 04/07/21 22:13 CT abd pelvis IV con only Stat CT chest diagnostic w con Stat CT lumbar spine w con Stat 04/08/21 00:20 MR hip RT wo/w con Urgent MR lumbar spine wo/w con Routine Lumbar Spine X-Ray 04/03/21 18:18 LUMBAR SPINE 5 VIEWS HISTORY: back pop with right leg pain COMPARISON: None. FINDINGS: There is no fracture. No subluxation. Mild disc space narrowing at L5-S1. Mild facet degenerative changes within the lower lumbar spine. L5 is demonstrated to be a transitional vertebra with partial sacralization and pseudoarthrosis of the right transverse process with the sacrum. IMPRESSION: No fracture or subluxation within the lumbar spine. ACT 112: Negative or not required by law. Electronically signed by: Arsh Mckeon M.D. 04/03/2021 9:08 PM KUB X-Ray 04/03/21 19:21 KUB HISTORY: kidney stones COMPARISON: None. FINDINGS: The bowel gas pattern is unremarkable. There are no dilated loops of small bowel to suggest an obstruction. No renal calculi. No ureteral calculi. No pneumoperitoneum or pneumatosis. Moderate well-formed stool seen within the colon. IMPRESSION: No renal or ureteral stones. ACT 112: Negative or not required by law. Electronically signed by: Arsh Mckeon M.D. 04/03/2021 9:09 PM Chest CTA 04/03/21 22:57 CT angio chest w con CT DOSE: 564.37 mGycm CLINICAL HISTORY: Possible septic emboli. Possible tuberculosis. Covid positive patient. TECHNIQUE: CT angiography of the thorax was performed in a dynamic helical fashion during intravenous administration of 115 cc of Optiray 350. MIP images were acquired. A dose lowering technique was utilized adhering to the principles of ALARA. COMPARISON STUDY: None. FINDINGS: The thyroid is unremarkable in appearance. There is no evidence of thoracic aortic dilatation. There is no evidence of thoracic aortic dissection. There is a right lower lobe pulmonary artery filling defect indicative of pulmonary embolism. There are multiple bilateral pulmonary nodules, many of which demonstrate a surrounding groundglass halo. There is a more focal 32 mm pleural-based opacity within the left lower lobe with areas of cavitation. There is no evidence of pathologic axillary mediastinal or hilar lymphadenopathy. There are no large pleural effusions. There is hepatic steatosis. The spleen is enlarged. No destructive skeletal lesions are visualized. IMPRESSION: 1. Right lower lobe pulmonary artery filling defect indicative of pulmonary embolism. This finding will be called to the floor as it was not described in the pulmonary report 2. 32 mm pleural-based opacity within the left lower lobe with areas of cavitation. This may represent a pulmonary infarct. 3. Multiple bilateral pulmonary nodules, many of which demonstrate a surrounding groundglass halo. This favors an infectious/inflammatory etiology over neoplasm. Septic emboli must be considered within the differential. Clinical and imaging follow-up are recommended. ACT 112: Negative or not required by law. Electronically signed by: Zane Esquivel M.D. 04/04/2021 8:16 AM Venous Doppler Study 04/04/21 10:47 US venous doppler LE BI CLINICAL HISTORY: plumonary emboli COMPARISON STUDY: No previous studies for comparison. FINDINGS: Real-time and color flow Doppler imaging were performed. Flow was seen within the femoral, popliteal and calf veins with no intraluminal thrombus demonstrated. The saphenous vein is patent. IMPRESSION: No evidence of deep venous thrombosis. ACT 112: Negative or not required by law. The above report was generated using voice recognition software. It may contain grammatical, syntax or spelling errors. Electronically signed by: Abbie Lima DO 04/04/2021 2:35 PM Abdomen/Pelvis CT 04/07/21 22:13 CT SCAN OF THE CHEST, ABDOMEN, AND PELVIS WITH IV CONTRAST; CT SCAN OF THE LUMBAR SPINE WITH IV CONTRAST CLINICAL HISTORY: Covid. Drop in hemoglobin. Low back pain. COMPARISON STUDY: Chest CT dated 04/03/2021. KUB dated 04/03/2021. Abdominal CT dated 04/03/2021. Radiographs of the lumbar spine dated 04/03/2021. TECHNIQUE: Following the IV administration of 89 of Optiray 320, CT scan of the chest, abdomen, and pelvis was performed from the thoracic inlet to the proximal femora. Additionally, CT scan of lumbar spine is performed from the lower thoracic spine to the sacrum. Images for these examinations are reviewed in the axial, sagittal, and coronal planes. IV contrast was administered without complication. A dose lowering technique was utilized adhering to the principles of ALARA. Examinations are modestly degraded by motion artifact. CT DOSE: 637.80 mGy.cm FINDINGS: CHEST: Thyroid: Imaged portions of the thyroid gland are normal in size and attenuation. Thoracic aorta: The thoracic aorta is normal in caliber and demonstrates standard 3-vessel arch anatomy. No dissection is seen. Pulmonary vasculature: The pulmonary trunk is normal in caliber. Pulmonary embolus is again seen within segmental branches of the right lower lobe pulmonary artery. The central pulmonary vessels are clear. Note that this examination was not protocoled for evaluation of the pulmonary arteries. Heart: A right subclavian central venous catheter is in place. The heart is normal in size and without pericardial effusion. Lungs and pleural spaces: There are trace pleural effusions. A focus of subpleural consolidation with cavitation is again seen at the left lung base on image #161. This measures up to 3.2 cm. There are numerous (greater than 20) inflammatory appearing nodules with groundglass halos scattered throughout both lungs, many of which demonstrate cavitation. The distribution of nodules is sana lar to previous. The degree of cavitation has increased as compared to 04/03/2021. The trachea and central airways are clear. Mediastinum: There is no mediastinal lymphadenopathy. Estela: Clear. Axillae: There is no axillary lymphadenopathy. Bony thorax: No lytic or blastic lesions are identified. ABDOMEN AND PELVIS: Liver: The contrast-enhanced liver is normal in size, contour, and attenuation. There is no intrahepatic biliary ductal dilatation. The hepatic veins and portal veins are patent. Gallbladder: Unremarkable. Spleen: Normal in size and attenuation. Pancreas: Unremarkable. Adrenal glands: The adrenal glands appear hyperemic. Kidneys: The contrast enhanced kidneys are normal in size and without hydronephrosis. There is heterogeneous enhancement of both kidneys. Small nonobstructing calculi measure up to 4 mm. A subcentimeter cortical hypodensity in the left kidney likely represents a cyst but is too small for definitive characterization. There is bilateral perinephric stranding. Abdominal vasculature: The abdominal aorta is normal in course and caliber. Thrombus is noted within the inferior vena cava on image #146. Bowel: There is no bowel obstruction. The appendix is well-visualized and normal. Peritoneum/retroperitoneal: There is no intraperitoneal free air or abdominal ascites. There is a fat-containing umbilical hernia. No retroperitoneal hemorrhage is identified. Lymphadenopathy: None. Pelvic viscera: The bladder, prostate, and seminal vesicles are normal as visualized. Skeletal structures: See below for dedicated assessment of the lumbar spine. No lytic or blastic lesions are seen. There is a joint effusion of the right hip. LUMBAR SPINE: Vertebral body height and alignment are maintained throughout the lumbar spine. The transverse and spinous processes are intact. There is a hemitransitional right lumbosacral segment. There is no evidence of spondylolysis. There is mild disc space narrowing at L5-S1. The remaining disc spaces are maintained. There is no evidence of large disc herniation or high- grade stenosis by CT. There is no endplate erosion or destruction. The paraspinous soft tissues are within normal limits. IMPRESSION: 1. Pulmonary embolus is again seen within a segmental branch of the right lower lobe pulmonary artery. 2. There is focal subpleural consolidation again seen at the left lung base with numerous (greater than 20) inflammatory appearing pulmonary nodules scattered throughout both lungs. The distribution of nodules is similar to the 04/03/2021 examination. The degree of cavitation has significantly increased. An infectious etiology is favored such as septic emboli. Clinical correlation will be required and follow-up to resolution is recommended. 3. Trace pleural effusions. 4. Renal enhancement is heterogeneous with associated perinephric inflammation. This could be related to bilateral pyelonephritis or possibly acute renal injury. Correlate with serum creatinine levels and urinalysis. 5. There is nonocclusive thrombus present within the inferior vena cava. 6. No acute bony abnormality is seen involving the lumbar spine. 7. There is a right hip joint effusion. The sterility cannot be evaluated by CT. 8. Bilateral nephrolithiasis. 9. The adrenal glands appear hyperemic, which can be seen with hypovolemia/hypotension. Clinical correlation will be required. 10. Additional findings as above. ACT 112: Negative or not required by law. Electronically signed by: Eddie Dwyer M.D. 04/07/2021 11:[address] 04/07/21 22:13 CT SCAN OF THE CHEST, ABDOMEN, AND PELVIS WITH IV CONTRAST; CT SCAN OF THE LUMBAR SPINE WITH IV CONTRAST CLINICAL HISTORY: Covid. Drop in hemoglobin. Low back pain. COMPARISON STUDY: Chest CT dated 04/03/2021. KUB dated 04/03/2021. Abdominal CT dated 04/03/2021. Radiographs of the lumbar spine dated 04/03/2021. TECHNIQUE: Following the IV administration of 89 of Optiray 320, CT scan of the chest, abdomen, and pelvis was performed from the thoracic inlet to the proximal femora. Additionally, CT scan of lumbar spine is performed from the lower thoracic spine to the sacrum. Images for these examinations are reviewed in the axial, sagittal, and coronal planes. IV contrast was administered without complication. A dose lowering technique was utilized adhering to the principles of ALARA. Examinations are modestly degraded by motion artifact. CT DOSE: 637.80 mGy.cm FINDINGS: CHEST: Thyroid: Imaged portions of the thyroid gland are normal in size and attenuation. Thoracic aorta: The thoracic aorta is normal in caliber and demonstrates standard 3-vessel arch anatomy. No dissection is seen. Pulmonary vasculature: The pulmonary trunk is normal in caliber. Pulmonary embolus is again seen within segmental branches of the right lower lobe pulmonary artery. The central pulmonary vessels are clear. Note that this examination was not protocoled for evaluation of the pulmonary arteries. Heart: A right subclavian central venous catheter is in place. The heart is normal in size and without pericardial effusion. Lungs and pleural spaces: There are trace pleural effusions. A focus of subpleural consolidation with cavitation is again seen at the left lung base on image #161. This measures up to 3.2 cm. There are numerous (greater than 20) inflammatory appearing nodules with groundglass halos scattered throughout both lungs, many of which demonstrate cavitation. The distribution of nodules is similar to previous. The degree of cavitation has increased as compared to 04/03/2021. The trachea and central airways are clear. Mediastinum: There is no mediastinal lymphadenopathy. Estela: Clear. Axillae: There is no axillary lymphadenopathy. Bony thorax: No lytic or blastic lesions are identified. ABDOMEN AND PELVIS: Liver: The contrast-enhanced liver is normal in size, contour, and attenuation. There is no intrahepatic biliary ductal dilatation. The hepatic veins and portal veins are patent. Gallbladder: Unremarkable. Spleen: Normal in size and attenuation. Pancreas: Unremarkable. Adrenal glands: The adrenal glands appear hyperemic. Kidneys: The contrast enhanced kidneys are normal in size and without hydronephrosis. There is heterogeneous enhancement of both kidneys. Small nonobstructing calculi measure up to 4 mm. A subcentimeter cortical hypodensity in the left kidney likely represents a cyst but is too small for definitive characterization. There is bilateral perinephric stranding. Abdominal vasculature: The abdominal aorta is normal in course and caliber. Thrombus is noted within the inferior vena cava on image #146. Bowel: There is no bowel obstruction. The appendix is well-visualized and normal. Peritoneum/retroperitoneal: There is no intraperitoneal free air or abdominal ascites. There is a fat-containing umbilical hernia. No retroperitoneal hemorrhage is identified. Lymphadenopathy: None. Pelvic viscera: The bladder, prostate, and seminal vesicles are normal as visualized. Skeletal structures: See below for dedicated assessment of the lumbar spine. No lytic or blastic lesions are seen. There is a joint effusion of the right hip. LUMBAR SPINE: Vertebral body height and alignment are maintained throughout the lumbar spine. The transverse and spinous processes are intact. There is a he mitransitional right lumbosacral segment. There is no evidence of spondylolysis. There is mild disc space narrowing at L5-S1. The remaining disc spaces are maintained. There is no evidence of large disc herniation or high-grade stenosis by CT. There is no endplate erosion or destruction. The paraspinous soft tissues are within normal limits. IMPRESSION: 1. Pulmonary embolus is again seen within a segmental branch of the right lower lobe pulmonary artery. 2. There is focal subpleural consolidation again seen at the left lung base with numerous (greater than 20) inflammatory appearing pulmonary nodules scattered throughout both lungs. The distribution of nodules is similar to the 04/03/2021 examination. The degree of cavitation has significantly increased. An infectious etiology is favored such as septic emboli. Clinical correlation will be required and follow-up to resolution is recommended. 3. Trace pleural effusions. 4. Renal enhancement is heterogeneous with associated perinephric inflammation. This could be related to bilateral pyelonephritis or possibly acute renal injury. Correlate with serum creatinine levels and urinalysis. 5. There is nonocclusive thrombus present within the inferior vena cava. 6. No acute bony abnormality is seen involving the lumbar spine. 7. There is a right hip joint effusion. The sterility cannot be evaluated by CT. 8. Bilateral nephrolithiasis. 9. The adrenal glands appear hyperemic, which can be seen with hypovolemia/hypotension. Clinical correlation will be required. 10. Additional findings as above. ACT 112: Negative or not required by law. Electronically signed by: Eddie Dwyer M.D. 04/07/2021 11:[address] 04/07/21 22:13 CT SCAN OF THE CHEST, ABDOMEN, AND PELVIS WITH IV CONTRAST; CT SCAN OF THE LUMBAR SPINE WITH IV CONTRAST CLINICAL HISTORY: Covid. Drop in hemoglobin. Low back pain. COMPARISON STUDY: Chest CT dated 04/03/2021. KUB dated 04/03/2021. Abdominal CT dated 04/03/2021. Radiographs of the lumbar spine dated 04/03/2021. TECHNIQUE: Following the IV administration of 89 of Optiray 320, CT scan of the chest, abdomen, and pelvis was performed from the thoracic inlet to the proximal femora. Additionally, CT scan of lumbar spine is performed from the lower thoracic spine to the sacrum. Images for these examinations are reviewed in the axial, sagittal, and coronal planes. IV contrast was administered without complication. A dose lowering technique was utilized adhering to the principles of ALARA. Examinations are modestly degraded by motion artifact. CT DOSE: 637.80 mGy.cm FINDINGS: CHEST: Thyroid: Imaged portions of the thyroid gland are normal in size and attenuation. Thoracic aorta: The thoracic aorta is normal in caliber and demonstrates standard 3-vessel arch anatomy. No dissection is seen. Pulmonary vasculature: The pulmonary trunk is normal in caliber. Pulmonary embolus is again seen within segmental branches of the right lower lobe pulmonary artery. The central pulmonary vessels are clear. Note that this examination was not protocoled for evaluation of the pulmonary arteries. Heart: A right subclavian central venous catheter is in place. The heart is normal in size and without pericardial effusion. Lungs and pleural spaces: There are trace pleural effusions. A focus of subpleural consolidation with cavitation is again seen at the left lung base on image #161. This measures up to 3.2 cm. There are numerous (greater than 20) inflammatory appearing nodules with groundglass halos scattered throughout both lungs, many of which demonstrate cavitation. The distribution of nodules is similar to previous. The degree of cavitation has increased as compared to 04/03/2021. The trachea and central airways are clear. Mediastinum: There is no mediastinal lymphadenopathy. Estela: Clear. Axillae: There is no axillary lymphadenopathy. Bony thorax: No lytic or blastic lesions are identified. ABDOMEN AND PELVIS: Liver: The contrast-enhanced liver is normal in size, contour, and attenuation. There is no intrahepatic biliary ductal dilatation. The hepatic veins and portal veins are patent. Gallbladder: Unremarkable. Spleen: Normal in size and attenuation. Pancreas: Unremarkable. Adrenal glands: The adrenal glands appear hyperemic. Kidneys: The contrast enhanced kidneys are normal in size and without hydronephrosis. There is heterogeneous enhancement of both kidneys. Small nonobstructing calculi measure up to 4 mm. A subcentimeter cortical hypodensity in the left kidney likely represents a cyst but is too small for definitive characterization. There is bilateral perinephric stranding. Abdominal vasculature: The abdominal aorta is normal in course and caliber. Thrombus is noted within the inferior vena cava on image #146. Bowel: There is no bowel obstruction. The appendix is well-visualized and normal. Peritoneum/retroperitoneal: There is no intraperitoneal free air or abdominal ascites. There is a fat-containing umbilical hernia. No retroperitoneal hemorrhage is identified. Lymphadenopathy: None. Pelvic viscera: The bladder, prostate, and seminal vesicles are normal as visualized. Skeletal structures: See below for dedicated assessment of the lumbar spine. No lytic or blastic lesions are seen. There is a joint effusion of the right hip. LUMBAR SPINE: Vertebral body height and alignment are maintained throughout the lumbar spine. The transverse and spinous processes are intact. There is a hemitransitional right lumbosacral segment. There is no evidence of spondylolysis. There is mild disc space narrowing at L5-S1. The remaining disc spaces are maintained. There is no evidence of large disc herniation or high- grade stenosis by CT. There is no endplate erosion or destruction. The paraspinous soft tissues are within normal limits. IMPRESSION: 1. Pulmonary embolus is again seen within a segmental branch of the right lower lobe pulmonary artery. 2. There is focal subpleural consolidation again seen at the left lung base with numerous (greater than 20) inflammatory appearing pulmonary nodules scattered throughout both lungs. The distribution of nodules is similar to the 04/03/2021 examination. The degree of cavitation has significantly increased. An infectious etiology is favored such as septic emboli. Clinical correlation will be required and follow-up to resolution is recommended. 3. Trace pleural effusions. 4. Renal enhancement is heterogeneous with associated perinephric inflammation. This could be related to bilateral pyelonephritis or possibly acute renal injury. Correlate with serum creatinine levels and urinalysis. 5. There is nonocclusive thrombus present within the inferior vena cava. 6. No acute bony abnormality is seen involving the lumbar spine. 7. There is a right hip joint effusion. The sterility cannot be evaluated by CT. 8. Bilateral nephrolithiasis. 9. The adrenal glands appear hyperemic, which can be seen with hypovolemia/hypotension. Clinical correlation will be required. 10. Additional findings as above. ACT 112: Negative or not required by law. Electronically signed by: Eddie Dwyer M.D. 04/07/2021 11:15 PM Chest X-Ray 04/07/21 22:25 SINGLE VIEW CHEST CLINICAL HISTORY: Central venous catheter placement. FINDINGS: An AP, portable, supine chest radiograph is correlated with chest CT dated 04/03/2021. A right subclavian central venous catheter is in place. The cardiomediastinal silhouette is unremarkable. There is moderate interstitial thickening and nodularity. No lobar consolidation or large pleural effusion is identified. No pneumothorax is seen. The bony thorax is grossly intact. IMPRESSION: 1. A right subclavian central venous catheter has been placed. No pneumothorax is identified. 2. Interstitial thickening and mild nodularity seen throughout both lungs. 3. There is no lobar consolidation or pleural effusion. ACT 112: Negative or not required by law. Electronically signed by: Eddie Dwyer M.D. 04/07/2021 10:51 PM Hip MRI 04/08/21 00:20 MR hip RT wo/w con CLINICAL HISTORY: Sepsis. Right hip joint effusion. History of IV drug abuse. Evaluate for osteomyelitis/septic arthritis. COMPARISON STUDY: CT scan dated 04/07/2021 FINDINGS: The study was limited from a technical standpoint. The patient was unable to lie flat. Images were acquired before and after the administration of 7.8 cc of intravenous Gadavist. Multiple repeat sequences were acquired. The patient was scanned in the left lateral decubitus position. There are no areas of marrow or replacement to indicate neoplasm. There are no areas of marrow edema to indicate occult fracture or bone bruise. There are no findings to indicate osteomyelitis within the right hip. There is nonspecific L2 vertebral body marrow edema. There is a trace left hip joint effusion, and small right hip joint effusion. There is no pathologic adenopathy. There is mild edema within the right adductor musculature. There are no fluid collections to indicate an abscess. There is fluid within the rectum. IMPRESSION: 1. Small right hip joint effusion, and trace left hip joint effusion 2. No evidence of osteomyelitis within the right hip. 3. Mild right adductor muscular edema. 4. No evidence of abscess 5. Nonspecific L2 marrow edema. ACT 112: Negative or not required by law. Electronically signed by: Zane Esquivel M.D. 04/08/2021 7:56 AM Lumbar Spine MRI 04/08/21 00:20 MR lumbar spine wo/w con CLINICAL HISTORY: back pain/ infection TECHNIQUE: Sagittal and axial T1, T2 and STIR images were obtained. Images were acquired before and after the administration of 7.8 cc of intravenous Gadavist The study is moderately compromised from technical standpoint. The patient was unable to lie flat for the entire study. Several sequences are motion compromised. COMPARISON STUDY: No previous studies for comparison. OBSERVATIONS: There is L2 marrow edema. There is postcontrast L2 enhancement. This finding could be neoplastic or infectious. Clinical and imaging follow-up are recommended. L1-2: No disc protrusions or extrusions. No evidence of spinal canal or neural foraminal compromise. L2-3: There is a mild circumferential disc bulge. There is minimal spinal canal narrowing. There is no significant foraminal stenosis L3-4: No disc protrusions or extrusions. No evidence of spinal canal or neural foraminal compromise. L4-5: There is a small right paracentral disc protrusion. There is minimal deformity of the thecal sac. There is no significant foraminal narrowing. L5-S1: No disc protrusions or extrusions. No evidence of spinal canal or neural foraminal compromise. The conus medullaris and cauda equina appear normal. Postcontrast images reveal mild bilateral psoas enhancement. There are no focal fluid collections to indicate an abscess. There is heterogeneous right renal enhancement. Clinical correlation with regards to pyelonephritis recommended. IMPRESSION: 1. L2 marrow edema. This could be on a neoplastic or infectious basis. Clinical and imaging follow-up are recommended. 2. Mild bilateral psoas enhancement, likely inflammatory. No fluid collections to indicate a focal abscess 3. Heterogeneous renal enhancement. Clinical correlation with regards to pyelonephritis recommended 4. Right paracentral disc protrusion at the L4-5 level. 5. Technically limited study ACT 112: Negative or not required by law. Electronically signed by: Zane Esquivel M.D. 04/08/2021 8:03 AM 04/08/21 04/08/21 04/08/21 Range/Units 06:39 06:39 06:39 WBC (4.8-10.8) K/uL RBC (4.7-6.1) M/uL Hgb 6.9 L* (14.0-18.0) g/dL Hct 19.8 L* (42-52) % MCV (80-100) fL MCH (25-34) pg MCHC (32-36) g/dL RDW Std Deviation (36.4-46.3) fL RDW Coeff of Riley (11.5-14.5) % Plt Count (130-400) K/uL MPV (7.4-10.4) fL Reticulocyte % (Auto) (0.5-2.0) % Reticulocyte # (0.02-0.10) 10^6/uL Absolute Nucleated RBC (0-0) K/uL Nucleated RBC % (auto) % Neutrophils % (Manual) % Lymphocytes % (Manual) % Monocytes % (Manual) % Eosinophils % (Manual) % Metamyelocytes % (Man) % Myelocytes % (Man) % Neutrophils # (Manual) (1.4-6.5) K/uL Total Absolute Neuts (1.4-6.5) K/uL Lymphocytes # (Manual) (1.2-3.4) K/uL Total Abs Lymphocytes (1.2-3.4) K/uL Monocytes # (Manual) (0.11-0.59) K/uL Eosinophils # (Manual) (0-0.5) K/uL Metamyelocytes # (Man) (0-0) K/uL Myelocytes # (Manual) (0-0) K/uL Polychromasia Anisocytosis Peripher Smr Path Cons ESR (0-15) mm/hr Haptoglobin PT (9.0-12.0) Seconds INR (0.9-1.1) APTT (21.0-31.0) Seconds PTT Ratio Fibrinogen (184-400) mg/dl Fibrin Degrad Products 10-40 H (<10) mcg/ml D-Dimer (0-500) ug/L FEU Sodium (136-145) mmol/L Potassium (3.5-5.1) mmol/L Chloride (98-107) mmol/L Carbon Dioxide (21-32) mmol/L Anion Gap (3-11) BUN (7-18) mg/dl Creatinine 0.94 (0.6-1.4) mg/dl Est Cr Clr Drug Dosing 102.5 ml/min Est GFR ( Amer) 121.3 ml/min Est GFR (Non-Af Amer) 104.6 ml/min BUN/Creatinine Ratio (10-20) Glucose (70-99) mg/dl Lactate (0.4-2.0) mmol/L Calcium (8.5-10.1) mg/dl Phosphorus (2.5-4.9) mg/dl Magnesium (1.8-2.4) mg/dl Total Bilirubin (0.2-1) mg/dl Direct Bilirubin (0-0.2) mg/dl AST (15-37) U/L ALT (12-78) U/L Alkaline Phosphatase (45-117) U/L C-Reactive Protein (0-0.29) mg/dl Total Protein (6.4-8.2) gm/dl Albumin (3.4-5.0) gm/dl Procalcitonin (0-0.5) ng/ml Random Cortisol mcg/dl Urine Color Urine Appearance (Clear) Urine pH (4.5-7.5) Ur Specific Barco (1.000-1.030) Urine Protein (Negative) Urine Glucose (UA) (Negative) Urine Ketones (Negative) Urine Blood (Negative) Urine Nitrite (Negative) Urine Bilirubin (Negative) Urine Urobilinogen (Negative) Ur Leukocyte Esterase (Negative) Nasal Screen MRSA (PCR) (Negative) Blood Type Blood Type Recheck Antibody Screen Crossmatch 04/08/21 04/08/21 04/08/21 Range/Units 06:39 02:56 02:56 WBC (4.8-10.8) K/uL RBC (4.7-6.1) M/uL Hgb (14.0-18.0) g/dL Hct (42-52) % MCV (80-100) fL MCH (25-34) pg MCHC (32-36) g/dL RDW Std Deviation (36.4-46.3) fL RDW Coeff of Riley (11.5-14.5) % Plt Count (130-400) K/uL MPV (7.4-10.4) fL Reticulocyte % (Auto) (0.5-2.0) % Reticulocyte # (0.02-0.10) 10^6/uL Absolute Nucleated RBC (0-0) K/uL Nucleated RBC % (auto) % Neutrophils % (Manual) % Lymphocytes % (Manual) % Monocytes % (Manual) % Eosinophils % (Manual) % Metamyelocytes % (Man) % Myelocytes % (Man) % Neutrophils # (Manual) (1.4-6.5) K/uL Total Absolute Neuts (1.4-6.5) K/uL Lymphocytes # (Manual) (1.2-3.4) K/uL Total Abs Lymphocytes (1.2-3.4) K/uL Monocytes # (Manual) (0.11-0.59) K/uL Eosinophils # (Manual) (0-0.5) K/uL Metamyelocytes # (Man) (0-0) K/uL Myelocytes # (Manual) (0-0) K/uL Polychromasia Anisocytosis Peripher Smr Path Cons ESR (0-15) mm/hr Haptoglobin PT (9.0-12.0) Seconds INR (0.9-1.1) APTT 25.0 (21.0-31.0) Seconds PTT Ratio 1.0 Fibrinogen (184-400) mg/dl Fibrin Degrad Products (<10) mcg/ml D-Dimer (0-500) ug/L FEU Sodium (136-145) mmol/L Potassium (3.5-5.1) mmol/L Chloride (98-107) mmol/L Carbon Dioxide (21-32) mmol/L Anion Gap (3-11) BUN (7-18) mg/dl Creatinine (0.6-1.4) mg/dl Est Cr Clr Drug Dosing ml/min Est GFR ( Amer) ml/min Est GFR (Non-Af Amer) ml/min BUN/Creatinine Ratio (10-20) Glucose (70-99) mg/dl Lactate 1.3 (0.4-2.0) mmol/L Calcium (8.5-10.1) mg/dl Phosphorus (2.5-4.9) mg/dl Magnesium (1.8-2.4) mg/dl Total Bilirubin (0.2-1) mg/dl Direct Bilirubin (0-0.2) mg/dl AST (15-37) U/L ALT (12-78) U/L Alkaline Phosphatase (45-117) U/L C-Reactive Protein (0-0.29) mg/dl Total Protein (6.4-8.2) gm/dl Albumin (3.4-5.0) gm/dl Procalcitonin 0.78 H (0-0.5) ng/ml Random Cortisol mcg/dl Urine Color Urine Appearance (Clear) Urine pH (4.5-7.5) Ur Specific Barco (1.000-1.030) Urine Protein (Negative) Urine Glucose (UA) (Negative) Urine Ketones (Negative) Urine Blood (Negative) Urine Nitrite (Negative) Urine Bilirubin (Negative) Urine Urobilinogen (Negative) Ur Leukocyte Esterase (Negative) Nasal Screen MRSA (PCR) (Negative) Blood Type Blood Type Recheck Antibody Screen Crossmatch 04/08/21 04/08/21 04/08/21 Range/Units 02:56 02:56 02:56 WBC 30.34 H* (4.8-10.8) K/uL RBC 2.47 L (4.7-6.1) M/uL Hgb 7.1 L (14.0-18.0) g/dL Hct 20.1 L* (42-52) % MCV 81.4 (80-100) fL MCH 28.7 (25-34) pg MCHC 35.3 (32-36) g/dL RDW Std Deviation 39.6 (36.4-46.3) fL RDW Coeff of Riley 13.6 (11.5-14.5) % Plt Count 227 (130-400) K/uL MPV 10.6 H (7.4-10.4) fL Reticulocyte % (Auto) 4.2 H (0.5-2.0) % Reticulocyte # 0.10 (0.02-0.10) 10^6/uL Absolute Nucleated RBC 0.10 H (0-0) K/uL Nucleated RBC % (auto) 0.3 % Neutrophils % (Manual) 64.4 % Lymphocytes % (Manual) 16.5 % Monocytes % (Manual) 7.8 % Eosinophils % (Manual) 1.7 % Metamyelocytes % (Man) 6.1 % Myelocytes % (Man) 3.5 % Neutrophils # (Manual) 19.54 H (1.4-6.5) K/uL Total Absolute Neuts 19.54 H (1.4-6.5) K/uL Lymphocytes # (Manual) 5.01 H (1.2-3.4) K/uL Total Abs Lymphocytes 5.01 H (1.2-3.4) K/uL Monocytes # (Manual) 2.37 H (0.11-0.59) K/uL Eosinophils # (Manual) 0.52 H (0-0.5) K/uL Metamyelocytes # (Man) 1.85 H (0-0) K/uL Myelocytes # (Manual) 1.06 H (0-0) K/uL Polychromasia 1+ Anisocytosis Peripher Smr Path Cons ESR (0-15) mm/hr Haptoglobin PT 13.4 H (9.0-12.0) Seconds INR 1.4 H (0.9-1.1) APTT (21.0-31.0) Seconds PTT Ratio Fibrinogen 456 H (184-400) mg/dl Fibrin Degrad Products (<10) mcg/ml D-Dimer 2920 H* (0-500) ug/L FEU Sodium 141 (136-145) mmol/L Potassium 3.3 L (3.5-5.1) mmol/L Chloride 108 H (98-107) mmol/L Carbon Dioxide 26 (21-32) mmol/L Anion Gap 7.0 (3-11) BUN 21 H (7-18) mg/dl Creatinine 1.00 (0.6-1.4) mg/dl Est Cr Clr Drug Dosing 96.4 ml/min Est GFR ( Amer) 112.5 ml/min Est GFR (Non-Af Amer) 97.1 ml/min BUN/Creatinine Ratio 21.0 H (10-20) Glucose 128 H (70-99) mg/dl Lactate (0.4-2.0) mmol/L Calcium 7.1 L (8.5-10.1) mg/dl Phosphorus 3.5 (2.5-4.9) mg/dl Magnesium 2.0 (1.8-2.4) mg/dl Total Bilirubin 0.6 (0.2-1) mg/dl Direct Bilirubin 0.2 (0-0.2) mg/dl AST 18 (15-37) U/L ALT 24 (12-78) U/L Alkaline Phosphatase 48 (45-117) U/L C-Reactive Protein (0-0.29) mg/dl Total Protein 5.5 L (6.4-8.2) gm/dl Albumin 2.1 L (3.4-5.0) gm/dl Procalcitonin (0-0.5) ng/ml Random Cortisol mcg/dl Urine Color Urine Appearance (Clear) Urine pH (4.5-7.5) Ur Specific Barco (1.000-1.030) Urine Protein (Negative) Urine Glucose (UA) (Negative) Urine Ketones (Negative) Urine Blood (Negative) Urine Nitrite (Negative) Urine Bilirubin (Negative) Urine Urobilinogen (Negative) Ur Leukocyte Esterase (Negative) Nasal Screen MRSA (PCR) (Negative) Blood Type Blood Type Recheck Antibody Screen Crossmatch 04/07/21 04/07/21 04/07/21 Range/Units Unknown 23:51 22:50 WBC (4.8-10.8) K/uL RBC (4.7-6.1) M/uL Hgb (14.0-18.0) g/dL Hct (42-52) % MCV (80-100) fL MCH (25-34) pg MCHC (32-36) g/dL RDW Std Deviation (36.4-46.3) fL RDW Coeff of Riley (11.5-14.5) % Plt Count (130-400) K/uL MPV (7.4-10.4) fL Reticulocyte % (Auto) (0.5-2.0) % Reticulocyte # (0.02-0.10) 10^6/uL Absolute Nucleated RBC (0-0) K/uL Nucleated RBC % (auto) % Neutrophils % (Manual) % Lymphocytes % (Manual) % Monocytes % (Manual) % Eosinophils % (Manual) % Metamyelocytes % (Man) % Myelocytes % (Man) % Neutrophils # (Manual) (1.4-6.5) K/uL Total Absolute Neuts (1.4-6.5) K/uL Lymphocytes # (Manual) (1.2-3.4) K/uL Total Abs Lymphocytes (1.2-3.4) K/uL Monocytes # (Manual) (0.11-0.59) K/uL Eosinophils # (Manual) (0-0.5) K/uL Metamyelocytes # (Man) (0-0) K/uL Myelocytes # (Manual) (0-0) K/uL Polychromasia Anisocytosis Peripher Smr Path Cons ESR (0-15) mm/hr Haptoglobin PT 13.1 H (9.0-12.0) Seconds INR 1.3 H (0.9-1.1) APTT 31.0 (21.0-31.0) Seconds PTT Ratio 1.2 Fibrinogen (184-400) mg/dl Fibrin Degrad Products (<10) mcg/ml D-Dimer (0-500) ug/L FEU Sodium (136-145) mmol/L Potassium (3.5-5.1) mmol/L Chloride (98-107) mmol/L Carbon Dioxide (21-32) mmol/L Anion Gap (3-11) BUN (7-18) mg/dl Creatinine (0.6-1.4) mg/dl Est Cr Clr Drug Dosing ml/min Est GFR ( Amer) ml/min Est GFR (Non-Af Amer) ml/min BUN/Creatinine Ratio (10-20) Glucose (70-99) mg/dl Lactate (0.4-2.0) mmol/L Calcium (8.5-10.1) mg/dl Phosphorus (2.5-4.9) mg/dl Magnesium (1.8-2.4) mg/dl Total Bilirubin (0.2-1) mg/dl Direct Bilirubin (0-0.2) mg/dl AST (15-37) U/L ALT (12-78) U/L Alkaline Phosphatase (45-117) U/L C-Reactive Protein (0-0.29) mg/dl Total Protein (6.4-8.2) gm/dl Albumin (3.4-5.0) gm/dl Procalcitonin (0-0.5) ng/ml Random Cortisol mcg/dl Urine Color Yellow Urine Appearance Clear (Clear) Urine pH 5.5 (4.5-7.5) Ur Specific [place]co 1.042 H (1.000-1.030) Urine Protein Negative (Negative) Urine Glucose (UA) Negative (Negative) Urine Ketones Negative (Negative) Urine Blood Negative (Negative) Urine Nitrite Negative (Negative) Urine Bilirubin Negative (Negative) Urine Urobilinogen Negative (Negative) Ur Leukocyte Esterase Negative (Negative) Nasal Screen MRSA (PCR) Negative (Negative) Blood Type Blood Type Recheck Antibody Screen Crossmatch 04/07/21 04/07/21 04/07/21 Range/Units 22:50 22:47 22:47 WBC (4.8-10.8) K/uL RBC (4.7-6.1) M/uL Hgb (14.0-18.0) g/dL Hct (42-52) % MCV (80-100) fL MCH (25-34) pg MCHC (32-36) g/dL RDW Std Deviation (36.4-46.3) fL RDW Coeff of Riley (11.5-14.5) % Plt Count (130-400) K/uL MPV (7.4-10.4) fL Reticulocyte % (Auto) 3.7 H (0.5-2.0) % Reticulocyte # 0.06 (0.02-0.10) 10^6/uL Absolute Nucleated RBC (0-0) K/uL Nucleated RBC % (auto) % Neutrophils % (Manual) % Lymphocytes % (Manual) % Monocytes % (Manual) % Eosinophils % (Manual) % Metamyelocytes % (Man) % Myelocytes % (Man) % Neutrophils # (Manual) (1.4-6.5) K/uL Total Absolute Neuts (1.4-6.5) K/uL Lymphocytes # (Manual) (1.2-3.4) K/uL Total Abs Lymphocytes (1.2-3.4) K/uL Monocytes # (Manual) (0.11-0.59) K/uL Eosinophils # (Manual) (0-0.5) K/uL Metamyelocytes # (Man) (0-0) K/uL Myelocytes # (Manual) (0-0) K/uL Polychromasia Anisocytosis Peripher Smr Path Cons ESR (0-15) mm/hr Haptoglobin Pending PT (9.0-12.0) Seconds INR (0.9-1.1) APTT (21.0-31.0) Seconds PTT Ratio Fibrinogen (184-400) mg/dl Fibrin Degrad Products (<10) mcg/ml D-Dimer (0-500) ug/L FEU Sodium (136-145) mmol/L Potassium (3.5-5.1) mmol/L Chloride (98-107) mmol/L Carbon Dioxide (21-32) mmol/L Anion Gap (3-11) BUN (7-18) mg/dl Creatinine (0.6-1.4) mg/dl Est Cr Clr Drug Dosing ml/min Est GFR ( Amer) ml/min Est GFR (Non-Af Amer) ml/min BUN/Creatinine Ratio (10-20) Glucose (70-99) mg/dl Lactate (0.4-2.0) mmol/L Calcium (8.5-10.1) mg/dl Phosphorus (2.5-4.9) mg/dl Magnesium (1.8-2.4) mg/dl Total Bilirubin (0.2-1) mg/dl Direct Bilirubin (0-0.2) mg/dl AST (15-37) U/L ALT (12-78) U/L Alkaline Phosphatase (45-117) U/L C-Reactive Protein 6.68 H (0-0.29) mg/dl Total Protein (6.4-8.2) gm/dl Albumin (3.4-5.0) gm/dl Procalcitonin (0-0.5) ng/ml Random Cortisol mcg/dl Urine Color Urine Appearance (Clear) Urine pH (4.5-7.5) Ur Specific [place] (1.000-1.030) Urine Protein (Negative) Urine Glucose (UA) (Negative) Urine Ketones (Negative) Urine Blood (Negative) Urine Nitrite (Negative) Urine Bilirubin (Negative) Urine Urobilinogen (Negative) Ur Leukocyte Esterase (Negative) Nasal Screen MRSA (PCR) (Negative) Blood Type Blood Type Recheck Antibody Screen Crossmatch 04/07/21 04/07/21 04/07/21 Range/Units 22:47 22:19 22:19 WBC (4.8-10.8) K/uL RBC (4.7-6.1) M/uL Hgb (14.0-18.0) g/dL Hct (42-52) % MCV (80-100) fL MCH (25-34) pg MCHC (32-36) g/dL RDW Std Deviation (36.4-46.3) fL RDW Coeff of Riley (11.5-14.5) % Plt Count (130-400) K/uL MPV (7.4-10.4) fL Reticulocyte % (Auto) (0.5-2.0) % Reticulocyte # (0.02-0.10) 10^6/uL Absolute Nucleated RBC (0-0) K/uL Nucleated RBC % (auto) % Neutrophils % (Manual) % Lymphocytes % (Manual) % Monocytes % (Manual) % Eosinophils % (Manual) % Metamyelocytes % (Man) % Myelocytes % (Man) % Neutrophils # (Manual) (1.4-6.5) K/uL Total Absolute Neuts (1.4-6.5) K/uL Lymphocytes # (Manual) (1.2-3.4) K/uL Total Abs Lymphocytes (1.2-3.4) K/uL Monocytes # (Manual) (0.11-0.59) K/uL Eosinophils # (Manual) (0-0.5) K/uL Metamyelocytes # (Man) (0-0) K/uL Myelocytes # (Manual) (0-0) K/uL Polychromasia Anisocytosis Peripher Smr Path Cons ESR 10 (0-15) mm/hr Haptoglobin PT (9.0-12.0) Seconds INR (0.9-1.1) APTT (21.0-31.0) Seconds PTT Ratio Fibrinogen (184-400) mg/dl Fibrin Degrad Products (<10) mcg/ml D-Dimer (0-500) ug/L FEU Sodium (136-145) mmol/L Potassium (3.5-5.1) mmol/L Chloride (98-107) mmol/L Carbon Dioxide (21-32) mmol/L Anion Gap (3-11) BUN (7-18) mg/dl Creatinine (0.6-1.4) mg/dl Est Cr Clr Drug Dosing ml/min Est GFR ( Amer) ml/min Est GFR (Non-Af Amer) ml/min BUN/Creatinine Ratio (10-20) Glucose (70-99) mg/dl Lactate 1.3 (0.4-2.0) mmol/L Calcium (8.5-10.1) mg/dl Phosphorus (2.5-4.9) mg/dl Magnesium (1.8-2.4) mg/dl Total Bilirubin (0.2-1) mg/dl Direct Bilirubin (0-0.2) mg/dl AST (15-37) U/L ALT (12-78) U/L Alkaline Phosphatase (45-117) U/L C-Reactive Protein (0-0.29) mg/dl Total Protein (6.4-8.2) gm/dl Albumin (3.4-5.0) gm/dl Procalcitonin (0-0.5) ng/ml Random Cortisol mcg/dl Urine Color Urine Appearance (Clear) Urine pH (4.5-7.5) Ur Specific [place] (1.000-1.030) Urine Protein (Negative) Urine Glucose (UA) (Negative) Urine Ketones (Negative) Urine Blood (Negative) Urine Nitrite (Negative) Urine Bilirubin (Negative) Urine Urobilinogen (Negative) Ur Leukocyte Esterase (Negative) Nasal Screen MRSA (PCR) (Negative) Blood Type O Positive Blood Type Recheck Antibody Screen NEGATIVE Crossmatch See Detail 04/07/21 04/07/21 04/07/21 Range/Units 18:51 18:51 18:51 WBC (4.8-10.8) K/uL RBC (4.7-6.1) M/uL Hgb (14.0-18.0) g/dL Hct (42-52) % MCV (80-100) fL MCH (25-34) pg MCHC (32-36) g/dL RDW Std Deviation (36.4-46.3) fL RDW Coeff of Riley (11.5-14.5) % Plt Count (130-400) K/uL MPV (7.4-10.4) fL Reticulocyte % (Auto) (0.5-2.0) % Reticulocyte # (0.02-0.10) 10^6/uL Absolute Nucleated RBC (0-0) K/uL Nucleated RBC % (auto) % Neutrophils % (Manual) % Lymphocytes % (Manual) % Monocytes % (Manual) % Eosinophils % (Manual) % Metamyelocytes % (Man) % Myelocytes % (Man) % Neutrophils # (Manual) (1.4-6.5) K/uL Total Absolute Neuts (1.4-6.5) K/uL Lymphocytes # (Manual) (1.2-3.4) K/uL Total Abs Lymphocytes (1.2-3.4) K/uL Monocytes # (Manual) (0.11-0.59) K/uL Eosinophils # (Manual) (0-0.5) K/uL Metamyelocytes # (Man) (0-0) K/uL Myelocytes # (Manual) (0-0) K/uL Polychromasia Anisocytosis Peripher Smr Path Cons ESR (0-15) mm/hr Haptoglobin PT (9.0-12.0) Seconds INR (0.9-1.1) APTT (21.0-31.0) Seconds PTT Ratio Fibrinogen (184-400) mg/dl Fibrin Degrad Products (<10) mcg/ml D-Dimer (0-500) ug/L FEU Sodium (136-145) mmol/L Potassium (3.5-5.1) mmol/L Chloride (98-107) mmol/L Carbon Dioxide (21-32) mmol/L Anion Gap (3-11) BUN (7-18) mg/dl Creatinine (0.6-1.4) mg/dl Est Cr Clr Drug Dosing ml/min Est GFR ( Amer) ml/min Est GFR (Non-Af Amer) ml/min BUN/Creatinine Ratio (10-20) Glucose (70-99) mg/dl Lactate 1.5 (0.4-2.0) mmol/L Calcium (8.5-10.1) mg/dl Phosphorus (2.5-4.9) mg/dl Magnesium (1.8-2.4) mg/dl Total Bilirubin (0.2-1) mg/dl Direct Bilirubin (0-0.2) mg/dl AST (15-37) U/L ALT (12-78) U/L Alkaline Phosphatase (45-117) U/L C-Reactive Protein (0-0.29) mg/dl Total Protein (6.4-8.2) gm/dl Albumin (3.4-5.0) gm/dl Procalcitonin (0-0.5) ng/ml Random Cortisol 9.89 mcg/dl Urine Color Urine Appearance (Clear) Urine pH (4.5-7.5) Ur Specific [place] (1.000-1.030) Urine Protein (Negative) Urine Glucose (UA) (Negative) Urine Ketones (Negative) Urine Blood (Negative) Urine Nitrite (Negative) Urine Bilirubin (Negative) Urine Urobilinogen (Negative) Ur Leukocyte Esterase (Negative) Nasal Screen MRSA (PCR) (Negative) Blood Type Blood Type Recheck O Positive Antibody Screen Crossmatch 04/07/21 04/07/21 04/07/21 Range/Units 18:51 18:51 18:51 WBC 25.18 H (4.8-10.8) K/uL RBC 2.18 L (4.7-6.1) M/uL Hgb 6.3 L* (14.0-18.0) g/dL Hct 17.4 L* (42-52) % MCV 79.8 L (80-100) fL MCH 28.9 (25-34) pg MCHC 36.2 H (32-36) g/dL RDW Std Deviation 37.1 (36.4-46.3) fL RDW Coeff of Riley 12.6 (11.5-14.5) % Plt Count 214 (130-400) K/uL MPV 10.4 (7.4-10.4) fL Reticulocyte % (Auto) (0.5-2.0) % Reticulocyte # (0.02-0.10) 10^6/uL Absolute Nucleated RBC 0.08 H (0-0) K/uL Nucleated RBC % (auto) 0.3 % Neutrophils % (Manual) 75.6 % Lymphocytes % (Manual) 15.7 % Monocytes % (Manual) 2.6 % Eosinophils % (Manual) % Metamyelocytes % (Man) 3.5 % Myelocytes % (Man) 2.6 % Neutrophils # (Manual) 19.04 H (1.4-6.5) K/uL Total Absolute Neuts 19.04 H (1.4-6.5) K/uL Lymphocytes # (Manual) 3.95 H (1.2-3.4) K/uL Total Abs Lymphocytes 3.95 H (1.2-3.4) K/uL Monocytes # (Manual) 0.65 H (0.11-0.59) K/uL Eosinophils # (Manual) (0-0.5) K/uL Metamyelocytes # (Man) 0.88 H (0-0) K/uL Myelocytes # (Manual) 0.65 H (0-0) K/uL Polychromasia 1+ Anisocytosis Present Peripher Smr Path Cons ESR (0-15) mm/hr Haptoglobin PT (9.0-12.0) Seconds INR (0.9-1.1) APTT (21.0-31.0) Seconds PTT Ratio Fibrinogen (184-400) mg/dl Fibrin Degrad Products (<10) mcg/ml D-Dimer (0-500) ug/L FEU Sodium 141 (136-145) mmol/L Potassium 3.2 L (3.5-5.1) mmol/L Chloride 108 H (98-107) mmol/L Carbon Dioxide 27 (21-32) mmol/L Anion Gap 6.0 (3-11) BUN 20 H (7-18) mg/dl Creatinine 0.87 (0.6-1.4) mg/dl Est Cr Clr Drug Dosing 110.8 ml/min Est GFR ( Amer) 129.6 ml/min Est GFR (Non-Af Amer) 111.8 ml/min BUN/Creatinine Ratio 23.5 H (10-20) Glucose 120 H (70-99) mg/dl Lactate (0.4-2.0) mmol/L Calcium 7.5 L (8.5-10.1) mg/dl Phosphorus (2.5-4.9) mg/dl Magnesium (1.8-2.4) mg/dl Total Bilirubin (0.2-1) mg/dl Direct Bilirubin (0-0.2) mg/dl AST (15-37) U/L ALT (12-78) U/L Alkaline Phosphatase (45-117) U/L C-Reactive Protein (0-0.29) mg/dl Total Protein (6.4-8.2) gm/dl Albumin (3.4-5.0) gm/dl Procalcitonin 0.83 H (0-0.5) ng/ml Random Cortisol mcg/dl Urine Color Urine Appearance (Clear) Urine pH (4.5-7.5) Ur Specific Barco (1.000-1.030) Urine Protein (Negative) Urine Glucose (UA) (Negative) Urine Ketones (Negative) Urine Blood (Negative) Urine Nitrite (Negative) Urine Bilirubin (Negative) Urine Urobilinogen (Negative) Ur Leukocyte Esterase (Negative) Nasal Screen MRSA (PCR) (Negative) Blood Type Blood Type Recheck Antibody Screen Crossmatch Hospital Course (1) MRSA bacteremia: Patient has MRSA bacteremia. With h/o IVDU although denies recent use. With persistently positive BCxs on 04/03 and 04/06 despite treatment with IV Vanco With evidence of possible L2 OM, Right hip joint effusion and pain--> suspect septic arthritis? With heterogenous enhancement of kidneys on imaging possible pyelo although UA neg for infection but did present with scrotal pain and dysuria which is now improved ECHO transthroacic without vegetation but great concern for IE given persistently positive blood cultures, pulmonary septic emboli BCxs 02/05 repeated and NGTD -continue IV Vancomycin for MRSA and Zosyn empirically (was briefly on linezolid x 1 dose on AM of 04/08 but I changed it back to Vanco which would be better for Endocarditis) -needs transfer for possible CT Surgery eval, needs AMILCAR but with COVID positive nasal swab here, not able to do procedure here as per reports from previous hospitalist. -needs ID consult -transfer out to [facility] for higher level of care given this plus multiple other comorbidities as below -recommend Spine Surgery and Ortho consults too for findings above (2) Cavitary lesion of lung: - concern for infectious etiology (bacterial vs fungal vs TB ) vs septic pulmonary emboli in person with IVDU hx and Hep C - CTA Chest appears to be showing pulmonary emboli likely septic given his history. - AFb smear, gold quantiferon negative - Elevated WBC worsening at 30k. -Blood cultures showing MRSA. continue vanc and zosyn as above -Pulm consult appreciated-high risk for PTX-none so far (3) Hematochezia: With shikha colored stool x 2 occasions from 04/07-04/08 resulting in acute blood loss anemia with hgb dropping from 11.7--> 6.3 Mild lower abd pain, no melena but has some heartburn symptoms No h/o liver disease, no h/o GI bleed or hemorrhoids, never had colonoscopy -transfused 4 units PRBCs -follow serial CBC -GI consult pending at time of discharge -continue Protonix gtt -HOLD Heparin gtt and consider IVC filter (4) Anemia: Acute blood loss anemia from GI bleed as above (5) Lab test positive for detection of COVID-19 virus: - had covid 1 month ago, pt not tested at that time - asymptomatic - tested positive on 04/03 at [facility] - no O2 requirement - airborne/covid precautions (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 now with bleeding if persists, consider FFP (9) Current smoker: nicotine patch provided (10) Hip pain: with small joint effusion on right, pain on right could be septic arthritis should have Ortho eval continue abx (11) Back pain: L2 marrow edema, possible OM? continue abx consider SPine Surgery eval pain control given with IV dilaudid (12) Constipation: now resolved with Miralax, but with GI bleeding (13) Hepatitis C: - viral RNA quant elevated, has never been treated for this - consider HIV testing (14) Bilateral nephrolithiasis: - nonobstructing, 4mm BL with enhancing kidneys on CT as above with concern for hematogenous spread causing pyelo (15) History of heroin abuse: -home suboxone 16 mg daily on hold while receiving IV opioids for pain denies recent use (16) History of intravenous drug abuse: as above DISPO-transfer urgently to [facility] for eval for CT SUrgery, SPine Surgery, IVC filter? Accepting Physician is Dr. Hernandez of ICU Total Time Total Time Spent Total Time Spent (In Minutes): 90 min Total Time Includes: Examination of the Patient, Discharge Planning, Medication Reconciliation and Communication With Other Providers Discharge Plan Discharge Items Patient Disposition: Transfer Acute Care Hospital Reason For Visit: COVID POSITIVE,UTI Discharge Diagnosis: MRSA Bacteremia,GI Bleed, IVC Thrombus, PE, septic emboli Condition on Discharge: Critical Activity: As commented below Lifting: None Exercise/Sports: Rest today Non-emergency contact: Primary Care Provider Call non-emergency contact if: you have any medication questions and your symptoms worsen Follow-up/Referrals: Sierra Zuniga [Primary Care Provider] - Diet: Nothing by Mouth Addtl Attending Provider Instructions: Transferred to [facility] Pending Studies at Discharge: Yes Stand-Alone Forms: [facility] Items Patient informed of condition?: Yes DNR: No Discharge Level of Care: Other Communicable Disease: Yes Discharge Prognosis: Deteriorating Lines: JACC and US Guided Peripheral IV Urinary Catheter: No Medications and DC Order Discharge Orders: Discharge Order (Routine); Ordered 04/08/21 Ordered By: Jayne Hope Admission Data Admit Date/Time: 04/03/21 17:15 Attending Provider: Jayne Hope Admit Provider: Hosea Moffett Primary Care Provider: Sierra Zuniga Other Providers: Kofi Buckley ; Gamaliel Rubio ; Fran Catherine ; Jane Villarreal ; Aris Lane I. ; Girish Russ II ; Nilda Sun ; Luis F Montero ; Tracy Wilson Beti Schulz ; Samaria Torrez ; Tiffanie Gale ; Lanie Mulligan ; Mami Coughlin ; Demar Alicea ; Mayco Hightower ; Danish Marcus ; Arsh Ramirez ; Nathaly Ramirez ; Guanako Wayne ; Sapphire Marr ; Suman Evangelista ; Maco Britton ; Cash Pike ; Diomedes Ackerman ; Radha Hu ; Luis F Ramirez ; Vera Lei ; Radha Ramirez ; James Dunn ; Brynn Evans ; Declan Reinoso ; Deja Daniel ; Angeli Smith ; Brynn Hickey. ; Dorys Klein ; Herminio Washington ; Lindsay Ibarra A ; Steph Montanez ; Nikki Moreno ; Kristin Butt ; Deangelo Butt V ; Eladio Veliz ; Samaria Estrada ; Mega Garcia ; Mike Harrington ; Sierra Perales ; Jaz Paz ; Deangelo Mcmahan ; Dimitrios Hu ; Hill Hardy ; Sara Gentile ; Nikki Thurston ; Abimael Andrade ; Eric Ackerman ; Marina Morrison A. ; Vasu Rosen ; Carrillo Johns ; Leopoldo Vasquez ; Munir العراقي ; Vasu Granados ; Demar Harley Jr ; Bharati Ramirez ; Guanako Chang ; Reji Baez ; Kelley Antonio ; Lorelei Sanders ; Brock Cardona ; Mono Casarez ; Anastasiya Lora ; Ricardo Gordon ; Yaakov Varela ; Jonatan Rehman ; Pema Avitia ; Koko Martino ; Stephie Brooks ; Marti Gordon ; Abimael Lane ; Hieu Carr ; Guanako Ascencio ; Guanako Mendez ; Cally Jordan Coding Level of Care Code D/C Day Management >30 mins Diagnoses MRSA bacteremia R78.81; B95.62 Cavitary lesion of lung J98.4 Hematochezia K92.1 Anemia D64.9 Lab test positive for detection of COVID-19 virus U07.1 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
[2021-04-08] MEDS ORDERED: VANCOMYCIN HCL 1,500 MG in SODIUM CHLORIDE 0.9% 500 ML IV SCH (18:00)
[2021-04-09] MEDS ORDERED: VANCOMYCIN TROUGH ONE (09:30)
--- NOTE | 2021-04-09 17:24 | Gastrointestinal Consultation ---
Date of Consultation April 09, 2021 History of Present Illness Reason for Consultation: GI bleed Attending Physician: Jayne Hope MD History of Present Illness Patient was discharged prior to my evaluation. Allergies Allergy/AdvReac Type Severity Reaction Status Date / Time No Known Allergies Allergy Verified 04/03/21 18:47 Patient History Medical History No pertinent family history Osteomyelitis of jaw Surgical History History of mandibular surgery History of placement of ear tubes Hx of tonsillectomy Social History Smoking Status: Current every day smoker Age Started Using Tobacco: 20; Cigarettes Per Day: 1 pack; Second Hand Exposure: Yes; Hx Alcohol Use: Yes Alcohol type: beer and hard liquor Alcohol Intake Frequency: Monthly or Less Hx Substance Use: Yes Non-Prescribed Medications: Heroin Substance Use Type Other:: hx of heroin use Preferred Language: Spanish Communication Ability: Effective Alarm Adjuster Required: No Beliefs That Will Affect Care: None Current Living Situation: Family Feels Safe at Home: Yes PG Care Time/CCT Total # of Minutes Spent Total Time Spent with Patient: Total time spent is greater than 50% in coordination of care (as documented) at patient's floor/unit and/or counseling patient: Coding Level of Care Code None
== END 2021-04-08 13:30 | disposition short-term general hospital (02) | DRG 175 ==
LOC: 2W 17:15 → SUATTDRO 17:15 → 2S 22:25 → 1E 04-07 21:55